=== PATIENT | female | born 1990 | race Two or more races ===

== ENCOUNTER 2017-03-10 13:11 | Emergency (ER) | payer OTHER ==
[2017-03-10 13:16] VITALS: BP 120/71; PULSE 67; TEMP 97.9; BMI 24.4
[2017-03-10] MEDS ORDERED: predniSONE 20 MG TABLET (UD) PO ONE (13:51)
[2017-03-10] MEDS ORDERED: ALBUTEROL SO4 2.5/IPRATROPIUM 0.5 INH SOL 3 ML VIAL.NEB. NEB ONE ×2 (13:51→13:55)
[2017-03-10] MEDS ORDERED: predniSONE 20 MG TABLET (UD) ONE (13:55)
[2017-03-10] MEDS ORDERED: diphenhydrAMINE HCL 25 MG CAPSULE (FP) PO ONE ×2 (13:56→14:01)
--- NOTE | 2017-03-10 13:58 | PDOC ---
History of Present Illness - General Chief Complaint: Cold Symptoms Stated Complaint: SOB/wheeze Time Seen by Provider: 03/10/17 13:40 History Source: Patient Exam Limitations: No Limitations - History of Present Illness Initial Comments: 03/10/17 13:55 26 yr female with asthma history presents with 3 days cough congestion and wheezing. no fever or chills. Pt denies history of intubations. no sick contacts. Associated Symptoms: reports: chest pain/soreness, cough. denies: denies symptoms Past History - Past Medical History Allergies/Adverse Reactions: Allergies Allergy/AdvReac Type Severity Reaction Status Date / Time No Known Allergies Allergy Verified 03/10/17 13:12 Home Medications: Ambulatory Orders Albuterol Sulfate Inhaler - [Ventolin Hfa Inhaler -] 2 inh PO Q4H 03/10/17 Fluticasone Prop 0.05% Nasal [Flonase -] 1 - 2 spray NS DAILY #1 spray.pump Ibuprofen [Motrin -] 800 mg PO TID 03/10/17 Prednisone [Deltasone -] 40 mg PO DAILY #6 tablet 03/10/17 Asthma: Yes (with preg) Diabetes: Yes (gestational) - Suicide/Smoking/Psychosocial Hx Smoking History: Never smoked Information on smoking cessation initiated: No Hx Alcohol Use: No Drug/Substance Use Hx: No Substance Use Type: None Review of Systems - Review of Systems Able to Perform ROS?: Yes Is the patient limited Lao proficient: No Constitutional: No: Symptoms Reported HEENTM: Yes: See HPI, Nose Congestion Respiratory: Yes: Cough *Physical Exam - Vital Signs Last Vital Signs Temp Pulse Resp BP Pulse Ox 97.9 F 67 18 120/71 100 03/10/17 13:13 03/10/17 13:13 03/10/17 13:13 03/10/17 13:13 03/10/17 13:13 - Physical Exam General Appearance: Yes: Nourished, Appropriately Dressed HEENT: positive: EOMI, PILY, Normal ENT Inspection, TMs Normal, Pharynx Normal, Nasal Congestion Neck: positive: Supple Respiratory/Chest: positive: Lungs Clear, Normal Breath Sounds Cardiovascular: positive: Regular Rhythm, Regular Rate Musculoskeletal: positive: Normal Inspection Extremity: positive: Normal Capillary Refill Integumentary: positive: Normal Color, Dry, Warm Medical Decision Making - Medical Decision Making 03/10/17 13:57 cc: cough wheezing, congestion no fever will give micki melton prednsione 03/10/17 14:57 pt feels better after the nebulizer will dc home with strict follow up with ENT *DC/Admit/Observation/Transfer Diagnosis at time of Disposition: Asthma Qualifiers: Asthma severity: moderate Asthma persistence: unspecified Asthma complication type: uncomplicated Qualified Code(s): J45.909 - Unspecified asthma, uncomplicated; J45.909 - Unspecified asthma, uncomplicated; J45.909 - Unspecified asthma, uncomplicated - Discharge Dispostion Disposition: HOME Condition at time of disposition: Good - Prescriptions Prescriptions: Prednisone [Deltasone -] 40 mg PO DAILY #6 tablet Fluticasone Prop 0.05% Nasal [Flonase -] 1 - 2 spray NS DAILY #1 spray.pump - Referrals Referrals: Ismael Lopez MD [Staff Physician] - - Patient Instructions Additional Instructions: drink at least 2 liters of water a day use your inhaler as directed next dose of prednisone tomorrow morning use the flonase nose spray as directed also take Zyrtec or Claritin or Barbara daily follow with the ENT doctor next week for follow up regarding your asthma and congestion
[2017-03-10] MEDS ORDERED: ONDANSETRON *ODT* 4 MG TABLET SL ONE (14:20)
[2017-03-10] MEDS ORDERED: ONDANSETRON *ODT* 4 MG TABLET ONE (14:22)
== END 2017-03-10 15:04 | disposition home or self-care (01) ==
LOC: JERFT 13:11
PROC: 3E0F7GC Introduction of Other Therapeutic Substance into Respiratory Tract, Via Natural or Artificial Opening (ICD-10-PCS; principal; 2017-03-10)
DX: J45.901 Unspecified asthma with (acute) exacerbation (principal); O24.439 Gestational diabetes mellitus in the puerperium, unspecified control
CPT/HCPCS: 99281-25

== ENCOUNTER 2017-03-11 11:44 | Emergency (ER) | payer OTHER ==
[2017-03-11 11:55] VITALS: TEMP 98.5; BMI 26.6
[2017-03-11] MEDS ORDERED: ALBUTEROL SO4 2.5/IPRATROPIUM 0.5 INH SOL 3 ML VIAL.NEB. NEB ONE ×2 (12:16→12:28)
[2017-03-11] MEDS: ALBUTEROL SO4 2.5/IPRATROPIUM 0.5 INH SOL 3 ML VIAL.NEB. NEB SCH ×4 (12:20→13:10)
--- NOTE | 2017-03-11 12:36 | PDOC ---
Attending Attestation - Resident Resident Name: ThabrittniVasu - ED Attending Attestation I have performed the following: I have examined & evaluated the patient, The case was reviewed & discussed with the resident, I agree w/resident's findings & plan, Exceptions are as noted - HPI HPI: 03/11/17 12:34 26 year old F c/ hx of asthma p/w asthma exacerbation. and cough. Pt was here yesterday. Given duonebs and prednisone and discharged. Today, c/o persistent SOB and wheezing. Has been using albuterol Denies fevers, chills but reports SOB. Came into ED for eval. - Physicial Exam PE: 03/11/17 12:34 GENERAL: mildly acute distress with tachypnea CV: RRR, +s1, s2 PULM: tachypneic to mid 20s, diffuse expiratory wheezing - Medical Decision Making 03/11/17 12:35 Vital Signs Temp Pulse Resp BP Pulse Ox 98.5 F 101 H 32 H 130/65 97 03/11/17 11:50 03/11/17 11:50 03/11/17 11:50 03/11/17 11:50 03/11/17 11:50 This is likely asthma exacerbation with plus/minus URI, bronchitis vs. PNA I agree with resident plan, labs, chest xray. nebs and steroids. Consider admission if not improving
[2017-03-11 12:37] LABS: BASOPHIL 0.7 % (0-2.0); EOSINOPHIL 2.4 % (0-4.5); MCH 30.2 pg (25.7-33.7); MCHC 32.4 g/dl (32.0-36.0); MEAN CELL VOLUME 93.1 fl (80-96); NEUTROPHILS 63.8 % (42.8-82.8); PLATELET COUNT 185 K/MM3 (134-434); RDW 14.2 % (11.6-15.6); WHITE BLOOD COUNT 7.5 K/mm3 (4.0-10.0)
[2017-03-11] MEDS ORDERED: predniSONE 20 MG TABLET (UD) PO ONE (12:38)
[2017-03-11] MEDS ORDERED: MAGNESIUM SULF 50% (8.12 MEQ/2 ML-1 GM VIAL) IVPB ONE (12:39)
[2017-03-11] MEDS ORDERED: predniSONE 20 MG TABLET (UD) ONE (12:41)
[2017-03-11] MEDS ORDERED: MAGNESIUM SULF 50% (8.12 MEQ/2 ML-1 GM VIAL) ONE (12:41)
--- NOTE | 2017-03-11 13:02 | PDOC ---
History of Present Illness - General Chief Complaint: Wheezing Stated Complaint: TROUBLE BREATHING Time Seen by Provider: 03/11/17 12:07 History Source: Patient Exam Limitations: No Limitations - History of Present Illness Initial Comments: 03/11/17 12:57 The patient is a 26 F with a PMH of asthma, s/p delivery 1 month ago who presents to the ED with worsening cough and SOB. The patient states that she was feeling very short of breath even before she delivered a baby. Her OB/ [facility] stated that she would feel better after delivering her baby and this did not happen. The patient states that her cough acutely worsened yesterday where she was seen at [facility] ED and was given prednisone and duoneb treatment and felt better. Today she states that her cough has worsened again and is complaining of CP and SOB but no fever/chills. All: Latex Past History - Past Medical History Allergies/Adverse Reactions: Allergies Allergy/AdvReac Type Severity Reaction Status Date / Time No Known Allergies Allergy Verified 03/11/17 11:55 Home Medications: Ambulatory Orders Albuterol Sulfate Inhaler - [Ventolin Hfa Inhaler -] 2 inh PO Q4H 03/10/17 Fluticasone Prop 0.05% Nasal [Flonase -] 1 - 2 spray NS DAILY #1 spray.pump Ibuprofen [Motrin -] 800 mg PO TID 03/10/17 Prednisone [Deltasone -] 40 mg PO DAILY #6 tablet 03/10/17 Albuterol Sulfate Inhaler - [Ventolin Hfa Inhaler -] 1 - 2 inh PO Q4H #1 inhaler 03/11/17 Azithromycin [Zithromax 250mg Tablets -] 250 mg PO UTDICT #6 tab 03/11/17 Benzonatate [Tessalon Pearls -] 100 mg PO TID #21 capsule 03/11/17 Asthma: Yes (with preg) Diabetes: Yes (gestational) - Suicide/Smoking/Psychosocial Hx Smoking History: Never smoked Have you smoked in the past 12 months: No Information on smoking cessation initiated: No Hx Alcohol Use: No Drug/Substance Use Hx: No Substance Use Type: None Review of Systems - Review of Systems Able to Perform ROS?: Yes Is the patient limited Lithuanian proficient: No Constitutional: No: Chills, Fever HEENTM: Yes: Throat Pain. No: Eye Pain, Ear Pain Respiratory: Yes: Cough, Shortness of Breath Cardiac (ROS): Yes: Chest Pain, Palpitations ABD/GI: No: Constipated, Diarrhea, Nausea, Vomiting : No: Burning, Dysuria, Discharge Integumentary: No: Lesions, Lumps, Rash Neurological: No: Headache, Numbness, Tingling, Weakness *Physical Exam - Vital Signs Last Vital Signs Temp Pulse Resp BP Pulse Ox 98.5 F 101 H 32 H 130/65 97 03/11/17 11:50 03/11/17 11:50 03/11/17 11:50 03/11/17 11:50 03/11/17 11:50 - Physical Exam General Appearance: Yes: Nourished, Appropriately Dressed, Moderate Distress. No: Apparent Distress HEENT: positive: Normal Voice, Hearing Grossly Normal Respiratory/Chest: positive: Labored Respiration, Wheezing (R sided inspiratory and expiratory wheezes). negative: Chest Tender, Lungs Clear, Normal Breath Sounds, Paradoxal Breathing, Crackles, Rales, Rhonchi, Stridor Cardiovascular: positive: Regular Rhythm, Regular Rate, S1, S2. negative: Diastolic Murmur, Systolic Murmur Gastrointestinal/Abdominal: positive: Flat, Soft. negative: Tender Extremity: positive: Normal Range of Motion. negative: Coldness, Swelling, Calf Tenderness Integumentary: positive: Dry, Warm. negative: Clammy, Diaphoresis Neurologic: positive: Fully Oriented, Alert, Normal Mood/Affect, Motor Strength 5/5 ED Treatment Course - LABORATORY CBC & Chemistry Diagram: 03/11/17 12:19 03/11/17 12:19 - ADDITIONAL ORDERS Additional order review: 03/11/17 12:19 RBC 4.95 MCV 93.1 MCHC 32.4 RDW 14.2 MPV 8.0 Neutrophils % 63.8 Lymphocytes % 27.3 Monocytes % 5.8 Eosinophils % 2.4 Basophils % 0.7 - RADIOLOGY Radiology Studies Ordered: Category Date Time Status CHEST PA & LAT [RAD] Stat Radiology 03/11/17 12:19 Ordered - Medications Given in the ED: ED Medications Discontinued Medications Generic Name Dose Route Start Last Admin Trade Name Freq PRN Reason Stop Dose Admin Albuterol/Ipratropium 1 amp 03/11/17 12:16 03/11/17 12:38 Duoneb - NEB 03/11/17 12:17 Not Given ONCE ONE Magnesium Sulfate 2 gm 03/11/17 12:39 03/11/17 12:50 Magnesium Sulfate IVPB 03/11/17 12:40 2 gm ONCE ONE Administration Prednisone 60 mg 03/11/17 12:38 03/11/17 12:50 Deltasone - PO 03/11/17 12:39 60 mg ONCE ONE Administration Medical Decision Making - Medical Decision Making 03/11/17 13:04 The patient is a 26F with a PMH of asthma and post- x 1 month who presents with an acutely worsening cough. I have concern for asthma exacerbation and PE. Will order labs and reassess periodically for improvement of breath sounds. 2 duonebs and patient still has expiratory wheezes. Steroids and mag ordered. Will reassess. No WBC count. Pending chem panel. 03/11/17 13:16 Wheezing has improved but patient states that she is not feeling too much better. Will discuss with attending. 03/11/17 14:49 Patient was sleeping comfortably in bed. Wheezing is no longer present. Will d/ c with antibiotics and albuterol inhaler. *DC/Admit/Observation/Transfer Diagnosis at time of Disposition: Asthma Qualifiers: Asthma severity: moderate Asthma persistence: unspecified Asthma complication type: with acute exacerbation Qualified Code(s): J45.901 - Unspecified asthma with (acute) exacerbation - Discharge Dispostion Disposition: HOME Condition at time of disposition: Stable Admit: No - Prescriptions Prescriptions: Benzonatate [Tessalon Pearls -] 100 mg PO TID #21 capsule Albuterol Sulfate Inhaler - [Ventolin Hfa Inhaler -] 1 - 2 inh PO Q4H #1 inhaler Azithromycin [Zithromax 250mg Tablets -] 250 mg PO UTDICT #6 tab - Referrals Referrals: STAFF,NOT ON [Primary Care Provider] - Angi Bermudez MD [Staff Physician] - - Patient Instructions Printed Discharge Instructions: Acute Bronchitis, Asthma -- Adult, DI for Viral Upper Respiratory Infection -- Adult Additional Instructions: Please return to the ER if symptoms persist, worsen, or if new symptoms arise. Please follow up with [facility] (Dr. Combs) within 2-3 days. Please return if you have any shortness of breath, nausea, vomiting, fever, or chills. Please take your prescriptions as prescribed including the prednisone you were prescribed yesterday.
[2017-03-11 13:07] LABS: ALBUMIN 3.7 g/dl (3.4-5.0); ALK PHOS 131 U/L (45-117); ANION GAP 11 (8-16); BILIRUBIN,TOTAL 0.3 mg/dL (0.2-1.0); CALCIUM 8.8 mg/dL (8.5-10.1); CO2 25 mmol/L (21-32); CREATININE 0.8 mg/dL (0.55-1.02); GLUCOSE,RANDOM 99 mg/dL (74-106); SGPT/ALT 33 U/L (12-78); TOT PROT 7.1 g/dl (6.4-8.2)
[2017-03-11 13:14] LABS: SGOT/AST 24 U/L (15-37)
[2017-03-11 15:29] VITALS: BP 104/63; PULSE 90
== END 2017-03-11 15:20 | disposition home or self-care (01) ==
LOC: JER 11:44
PROC: 3E0F7GC Introduction of Other Therapeutic Substance into Respiratory Tract, Via Natural or Artificial Opening (ICD-10-PCS; principal; 2017-03-11)
PROC: 3E033GC Introduction of Other Therapeutic Substance into Peripheral Vein, Percutaneous Approach (ICD-10-PCS; 2017-03-11)
DX: O99.53 Diseases of the respiratory system complicating the puerperium (principal); J45.901 Unspecified asthma with (acute) exacerbation
CPT/HCPCS: 36415; 71020-TC; 80053; 84703; 85025; 94640; 96374; 99283-25

== ENCOUNTER 2017-03-25 10:31 | Emergency (ER) | payer OTHER ==
[2017-03-25 10:53] VITALS: BP 100/47; TEMP 98.3; BMI 23.9
[2017-03-25] MEDS: ALBUTEROL SO4 2.5/IPRATROPIUM 0.5 INH SOL 3 ML VIAL.NEB. NEB SCH ×4 (11:00→11:54)
--- NOTE | 2017-03-25 11:00 | PDOC ---
History of Present Illness - General Chief Complaint: Shortness of Breath Stated Complaint: CHEST PAIN, ASTHMA Time Seen by Provider: 03/25/17 10:58 History Source: Patient Exam Limitations: No Limitations - History of Present Illness Initial Comments: 03/25/17 11:18 My Chief Complaint: cough productive, wheezing History of Present Illness: Pt. is a 26-year-old female with a history of asthma and gestational diabetes here today due to worsening chest tightness, wheezing, with difficulty breathing since yesterday. Patient reports that today breathing was even more difficult. Patient reports having chest tightness with pain upon inspiration. Patient reports that cough is productive with white to clear phlegm. Patient also reports having nasal congestion with postnasal drip. She has been using Flonase nasal spray. Patient reports that she used her albuterol pump multiple times today without relief of symptoms. Pt.denies any nausea, vomiting, sore throat, fever or chills. Pt. reports that she was here on 03/10/17 and 03/11/17 first similar symptoms and was treated with azithromycin and prednisone. Patient denies any recent travel or any sick contacts. Pt. is on OCP's. Pt. has her menses since yesterday. SHe denies ever being hospitalized due to asthma. 03/25/17 11:47 03/25/17 11:50 03/25/17 11:54 03/25/17 11:55 03/25/17 12:31 Severity: moderate Associated Symptoms: reports: chest pain (with coughing, deep breaths ), cough ( clear to white ), shortness of breath (and chest discomofrt with tightness of chest ), other (lungs upon reassessment CTA b/l ). denies: fever/chills Past History - Past Medical History Allergies/Adverse Reactions: Allergies Allergy/AdvReac Type Severity Reaction Status Date / Time No Known Allergies Allergy Verified 03/25/17 10:34 Home Medications: Ambulatory Orders Albuterol Sulfate Inhaler - [Ventolin HFA Inhaler -] 2 inh PO Q4H PRN #1 inh Cetirizine HCl [Zyrtec -] 10 mg PO DAILY #10 tablet 03/25/17 Fluticasone Propionate [Flovent Diskus] 100 mcg IH DAILY #1 disk.w.dev 03/25/17 Prednisone [Deltasone -] 20 mg PO BID #8 tablet 03/25/17 Asthma: Yes (with preg) Diabetes: Yes (gestational) - Suicide/Smoking/Psychosocial Hx Smoking History: Never smoked Have you smoked in the past 12 months: No Information on smoking cessation initiated: No Hx Alcohol Use: No Drug/Substance Use Hx: No Substance Use Type: None Review of Systems - Review of Systems Able to Perform ROS?: Yes Constitutional: No: Symptoms Reported HEENTM: Yes: Nose Congestion, Other (post nasal drip) Respiratory: Yes: Shortness of Breath, Wheezing, Productive cough (clear/ whitish ) Cardiac (ROS): Yes: Chest Pain (with tightness and worse with cough ), Lightheadedness ABD/GI: No: Symptoms Reported : No: Symptoms Reported Musculoskeletal: No: Symptoms Reported Integumentary: No: Symptoms Reported Neurological: No: Symptoms reported *Physical Exam - Vital Signs Last Vital Signs Temp Pulse Resp BP Pulse Ox 98.3 F 96 H 28 H 100/47 97 03/25/17 10:34 03/25/17 10:34 03/25/17 10:34 03/25/17 10:34 03/25/17 10:34 - Physical Exam General Appearance: Yes: Appropriately Dressed HEENT: positive: Normal ENT Inspection Neck: negative: Lymphadenopathy (R), Lymphadenopathy (L) Respiratory/Chest: positive: Crackles (left lung base few ), Rhonchi (b/l clears slightly with cough), Wheezing (b/l slight after 2 duonebs given in triage), Other (reassessment CTA b/l at 1:14 pm ). negative: Decreased Breath Sounds, Rales Cardiovascular: positive: Regular Rhythm, Regular Rate, S1, S2 Integumentary: positive: Normal Color Neurologic: positive: Alert, Normal Response Heart Score/ECG Review - ECG Intrepretation Rhythm: Regular Rhythm (reviewed by MD) Medical Decision Making - Medical Decision Making 03/25/17 12:31 03/25/17 12:31 Pt. is a 26-year-old female with a history of asthma and gestational diabetes here today due to worsening chest tightness, wheezing, with difficulty breathing since yesterday. Patient reports that today breathing was even more difficult. Patient reports having chest tightness with pain upon inspiration. Patient reports that cough is productive with white to clear phlegm. Patient also reports having nasal congestion with postnasal drip. She has been using Flonase nasal spray. Patient reports that she used her albuterol pump multiple times today without relief of symptoms. Pt.denies any nausea, vomiting, sore throat, fever or chills. Pt. reports that she was here on 03/10/17 and 03/11/17 first similar symptoms and was treated with azithromycin and prednisone. Patient denies any recent travel or any sick contacts. Pt. is on OCP's. Pt. has her menses since yesterday. SHe denies ever being hospitalized due to asthma. asthma Exacerabation r/o infiltrate PLAN: duoneb X 3 prednisone 60 mg po now than 20 mg bid for following 4 days urine HCG negative Xray chest PA/lateral no infiltrate per Dr. Jackson 03/25/17 13:15 Albuterol HFA 2 puffs every 4 hours as needed for wheezing or chest tightness or severe cough flovent 03/25/17 13:19 03/25/17 13:22 *DC/Admit/Observation/Transfer Diagnosis at time of Disposition: Asthma with acute exacerbation in adult Qualifiers: Asthma severity: unspecified severity Asthma persistence: unspecified Qualified Code(s): J45.901 - Unspecified asthma with (acute) exacerbation; J45.901 - Unspecified asthma with (acute) exacerbation; J45.901 - Unspecified asthma with (acute) exacerbation - Discharge Dispostion Disposition: HOME Condition at time of disposition: Stable - Referrals Referrals: Jorge Mendez MD [Staff Physician] - - Patient Instructions Additional Instructions: Follow-up with your primary care provider within the next 2 days FOR FURTHER EVALUATION follow up with administrative aide as soon as possible for further evaluation Return to emergency room if symptoms worsen any difficulty breathing or any worsening shortness of breath or severe wheezing or any other symptoms develop DRINK a lot a fluids and rest Patient voiced understanding of discharge instructions and all questions were answered Thank you for coming to [facility] emergency room for your medical needs today
[2017-03-25] MEDS ORDERED: predniSONE 20 MG TABLET (UD) PO ONE (11:12)
[2017-03-25] MEDS ORDERED: ALBUTEROL SO4 2.5/IPRATROPIUM 0.5 INH SOL 3 ML VIAL.NEB. NEB ONE (11:16)
[2017-03-25] MEDS ORDERED: predniSONE 20 MG TABLET (UD) ONE (11:16)
[2017-03-25 12:55] VITALS: PULSE 80
--- NOTE | 2017-03-26 09:09 | EKG ---
Test Reason : Blood Pressure : / mmHG Vent. Rate : 087 BPM Atrial Rate : 087 BPM P-R Int : 128 ms QRS Dur : 080 ms QT Int : 364 ms P-R-T Axes : 070 057 054 degrees QTc Int : 438 ms NORMAL SINUS RHYTHM NORMAL ECG NO PREVIOUS ECGS AVAILABLE Confirmed by IQRA SANTOS, RUBEN ([id number]) on 03/26/2017 9:09:03 AM Referred By: Confirmed By:RUBEN ESCALONA MD
== END 2017-03-25 13:35 | disposition home or self-care (01) ==
LOC: JER 10:31 → JERFT 10:31
PROC: 3E0F7GC Introduction of Other Therapeutic Substance into Respiratory Tract, Via Natural or Artificial Opening (ICD-10-PCS; principal; 2017-03-25)
DX: J45.901 Unspecified asthma with (acute) exacerbation (principal); Z86.32 Personal history of gestational diabetes
CPT/HCPCS: 71020-TC; 84703; 93005; 93010; 99281-25

== ENCOUNTER 2017-06-05 23:51 | Emergency (ER) | payer OTHER ==
[2017-06-06 00:56] VITALS: BP 121/72; PULSE 67; TEMP 98.5; BMI 26.2
[2017-06-06] MEDS ORDERED: predniSONE 20 MG TABLET (UD) PO ONE (00:59)
[2017-06-06] MEDS ORDERED: SULFAMETHOXAZOLE/TRIMETHOPRIM 800MG/160MG D.S. TABLET PO ONE (01:00)
--- NOTE | 2017-06-06 01:02 | PDOC ---
History of Present Illness - General Chief Complaint: Asthma Stated Complaint: ASTHMA History Source: Patient Exam Limitations: No Limitations - History of Present Illness Initial Comments: 06/06/17 01:16 27-year-old female with a history of asthma presents to the emergency department complaining of folliculitis to the left axillary region and shortness of breath that started at approximately 1800 hrs. this evening. Patient states she took her Ventolin inhaler with moderate relief at ~2130hrs and denies nausea/vomiting, fever/chills, headache, dizziness, lightheadedness, facial pain, rhinorrhea, nasal congestion, earaches, sore throat, neck pain/ stiffness, back pain, chest pain, abdominal pains, flank pains, urinary symptoms. She denies history of intubation or admission due to asthma. Timing/Duration: reports: this evening Past History - Past Medical History Allergies/Adverse Reactions: Allergies Allergy/AdvReac Type Severity Reaction Status Date / Time No Known Allergies Allergy Verified 06/06/17 00:47 Home Medications: Ambulatory Orders Prednisone [Deltasone -] 40 mg PO BID #6 tablet 06/06/17 Sulfamethoxazole/Trimethoprim [Bactrim Ds -] 1 tab PO BID #14 tablet 06/06/17 Asthma: Yes (with preg) Diabetes: Yes (gestational) - Suicide/Smoking/Psychosocial Hx Smoking History: Never smoked Have you smoked in the past 12 months: No Information on smoking cessation initiated: No Hx Alcohol Use: No Drug/Substance Use Hx: No Substance Use Type: None Review of Systems - Review of Systems Able to Perform ROS?: Yes Comments:: 06/06/17 01:17 CONSTITUTIONAL: Absent: fever, chills, diaphoresis, generalized weakness, malaise, loss of appetite HEENT: Absent: rhinorrhea, nasal congestion, throat pain, throat swelling, difficulty swallowing, mouth swelling, ear pain, eye pain, visual Changes CARDIOVASCULAR: Absent: chest pain, loss of consciousness, palpitations, irregular heart rate, peripheral edema RESPIRATORY: +sob Absent: cough, shortness of breath, dyspnea with exertion, orthopnea, wheezing, stridor, hemoptysis GASTROINTESTINAL: Absent: abdominal pain, abdominal distension, nausea, vomiting, diarrhea, constipation, melena, hematochezia GENITOURINARY: Absent: dysuria, frequency, urgency, hesitancy, hematuria, flank pain, genital pain MUSCULOSKELETAL: Absent: myalgia, arthralgia, joint swelling SKIN: Left axillar "bumps" Absent: rash, itching, pallor Is the patient limited Korean proficient: No *Physical Exam - Vital Signs Last Vital Signs Temp Pulse Resp BP Pulse Ox 98.5 F 67 14 121/72 99 06/06/17 00:47 06/06/17 00:47 06/06/17 00:47 06/06/17 00:47 06/06/17 00:47 - Physical Exam Comments: 06/06/17 01:18 GENERAL: Well developed, well nourished. Awake and alert. No acute distress. HEENT: Normocephalic, atraumatic. PERRLA, EOMI. No conjunctival pallor. Sclera are non- icteric. Moist mucous membranes. Oropharynx is clear. NECK: Supple. Full ROM. No JVD. Carotid pulses 2+ and symmetric, without bruits. No thyromegaly. No lymphadenopathy. CARDIOVASCULAR: Regular rate and rhythm. No murmurs, rubs, or gallops. Distal pulses are 2+ and symmetric. PULMONARY: No evidence of respiratory distress. Lungs clear to auscultation bilaterally. No wheezing, rales or rhonchi. ABDOMINAL: Soft. Non-tender. Non-distended. No rebound or guarding. No organomegaly. Normoactive bowel sounds. MUSCULOSKELETAL Normal range of motion at all joints. No bony deformities or tenderness. No CVA tenderness. EXTREMITIES: No cyanosis. No clubbing. No edema. No calf tenderness. SKIN: + Multiple erythematous early pustules to the left axilla without drainage or lymphangitis Warm and dry. Normal capillary refill. No rashes. No jaundice. Progress Note - Progress Note Progress Note: 0200hrs: Signed out to DARIELA Perez for reeval *DC/Admit/Observation/Transfer Diagnosis at time of Disposition: Folliculitis Asthma Qualifiers: Asthma severity: mild Asthma persistence: intermittent Asthma complication type : uncomplicated Qualified Code(s): J45.20 - Mild intermittent asthma, uncomplicated - Discharge Dispostion Condition at time of disposition: Stable Admit: No - Prescriptions Prescriptions: Prednisone [Deltasone -] 40 mg PO BID #6 tablet Sulfamethoxazole/Trimethoprim [Bactrim Ds -] 1 tab PO BID #14 tablet - Referrals - Patient Instructions Printed Discharge Instructions: Asthma -- Adult, DI for Folliculitis Additional Instructions: Follow-up with your physician within 48 hours for your asthma Take the antibiotics/Bactrim DS 1 tablet twice a day for 7 days for you left armpit. Redness/pain Warm compress to the left armpit Return back to the emergency department for severe/persistent or worsening symptoms - Post Discharge Activity
[2017-06-06] MEDS ORDERED: SULFAMETHOXAZOLE/TRIMETHOPRIM 800MG/160MG D.S. TABLET ONE (01:03)
[2017-06-06] MEDS ORDERED: predniSONE 20 MG TABLET (UD) ONE (01:03)
== END 2017-06-06 02:30 | disposition home or self-care (01) ==
LOC: JER 23:51
DX: J45.20 Mild intermittent asthma, uncomplicated (principal); L73.8 Other specified follicular disorders
CPT/HCPCS: 99281-25

== ENCOUNTER 2017-06-22 18:22 | Inpatient (IN) | payer OTHER ==
[2017-06-22] MEDS ORDERED: ALBUTEROL SO4 2.5/IPRATROPIUM 0.5 INH SOL 3 ML VIAL.NEB. NEB ONE ×5 (18:25→19:54)
[2017-06-22 18:33] VITALS: BMI 26.2
--- NOTE | 2017-06-22 18:35 | PDOC ---
Rapid Medical Evaluation Medical Evaluation: Allergies Allergy/AdvReac Type Severity Reaction Status Date / Time No Known Allergies Allergy Verified 06/06/17 00:47 06/22/17 18:28 The patient presents with a chief complaint of: Shortness of breath, hx of asthma. Has been hospitalized in the past. Never intubated. I have performed a brief in-person evaluation of this patient; Pertinent physical exam findings: Poor aeration to the bases. No expiratory sounds, I have ordered the following: CBC, CMP, PT/INR, influenza, duonebx2, solumedrol The patient will proceed to the ED for further evaluation.
[2017-06-22] MEDS ORDERED: methylPREDNISolone NA SUCC 125 MG/2 ML VIAL IVPUSH ONE (18:36)
[2017-06-22] MEDS ORDERED: methylPREDNISolone NA SUCC 125 MG/2 ML VIAL ONE (18:41)
[2017-06-22] MEDS ORDERED: SODIUM CHLORIDE 0.9% 1000 ML INFUS.BAG IV ONE (19:35)
[2017-06-22 19:54] LABS: BASO % 0.5 % (0-2.0); EOS % 4.6 % (0-4.5); HEMATOCRIT 44.5 % (32.4-45.2); HEMOGLOBIN 14.8 GM/dL (10.7-15.3); LYMPH % 16.8 % (8-40); MCH 31.9 pg (25.7-33.7); MCHC 33.3 g/dl (32.0-36.0); MEAN CELL VOLUME 95.6 fl (80-96); MEAN PLT VOLUME 8.6 fl (7.5-11.1); MONO % 5.9 % (3.8-10.2); NEUT % 72.2 % (42.8-82.8); PLATELET COUNT 197 K/MM3 (134-434); RBC 4.66 M/mm3 (3.60-5.2); RDW 13.1 % (11.6-15.6); WHITE BLOOD COUNT 7.6 K/mm3 (4.0-10.0)
[2017-06-22] MEDS ORDERED: MAGNESIUM SULF 50% (8.12 MEQ/2 ML-1 GM VIAL) IVPB ONE (20:09)
--- NOTE | 2017-06-22 20:09 | PDOC ---
History of Present Illness - General History Source: Patient Exam Limitations: No Limitations - History of Present Illness Initial Comments: 06/22/17 20:38 The patient is a 27 year old female, with a significant past medical history of asthma (no past admissions, never intubated), who presents to the emergency department with asthma exacerbation for approx. one day. The patient reports associated measured fever of 101F and productive cough with cream colored sputum. The patient reports she used an albuterol inhaler at home with minimal relief. She denies recent fever, chills, headache or dizziness. She denies recent nausea, vomit, diarrhea or constipation. She denies recent chest pain or palpitations. Allergies: NKA <Lawrence Glasgow - Last Filed: 06/22/17 20:56> <Kaitlin Vargas - Last Filed: 06/23/17 00:28> - General Chief Complaint: Asthma Stated Complaint: ASTHMA Time Seen by Provider: 06/22/17 19:20 Past History <Lawrence Glasgow - Last Filed: 06/22/17 20:56> - Past Medical History Asthma: Yes (with preg) CVA: No COPD: No Diabetes: Yes (gestational) - Immunization History Immunization Up to Date: Yes - Suicide/Smoking/Psychosocial Hx Smoking History: Never smoked Have you smoked in the past 12 months: No Information on smoking cessation initiated: No Hx Alcohol Use: No Drug/Substance Use Hx: No Substance Use Type: None <Kaitlin Vargas - Last Filed: 06/23/17 00:28> - Past Medical History Allergies/Adverse Reactions: Allergies Allergy/AdvReac Type Severity Reaction Status Date / Time No Known Allergies Allergy Verified 06/22/17 18:28 Home Medications: Ambulatory Orders Albuterol Sulfate Inhaler - [Ventolin HFA Inhaler -] PRN 06/22/17 Review of Systems - Review of Systems Comments:: 06/22/17 20:38 GENERAL/CONSTITUTIONAL: +Asthma exacerbation. No fever or chills. No weakness. HEAD, EYES, EARS, NOSE AND THROAT: No change in vision. No ear pain or discharge. No sore throat. CARDIOVASCULAR: +Shortness of breath. No chest pain RESPIRATORY: +Productive cough. +Wheezing. GASTROINTESTINAL: No nausea, vomiting, diarrhea or constipation. GENITOURINARY: No dysuria, frequency, or change in urination. MUSCULOSKELETAL: No joint or muscle swelling or pain. No neck or back pain. SKIN: No rash NEUROLOGIC: No headache, vertigo, loss of consciousness, or change in strength/ sensation. ENDOCRINE: No increased thirst. No abnormal weight change. HEMATOLOGIC/LYMPHATIC: No anemia, easy bleeding, or history of blood clots. ALLERGIC/IMMUNOLOGIC: No hives or skin allergy. <Lawrence Glasgow - Last Filed: 06/22/17 20:56> *Physical Exam - Vital Signs Last Vital Signs Temp Pulse Resp BP Pulse Ox 98.9 F 127 H 26 H 155/65 95 06/22/17 18:29 06/22/17 18:29 06/22/17 18:29 06/22/17 18:29 06/22/17 18:29 - Physical Exam Comments: 06/22/17 20:56 GENERAL: +Moderate respiratory distress. +Conversational dyspnea. Awake, alert , and fully oriented. HEAD: No signs of trauma EYES: PERRLA, EOMI, sclera anicteric, conjunctiva clear ENT: Auricles normal inspection, hearing grossly normal, nares patent, oropharynx clear without exudates. Moist mucosa NECK: Normal ROM, supple, no lymphadenopathy, JVD, or masses LUNGS: +Diffuse wheezing bilaterally. HEART +Tachycardia. Normal S1 and S2, no murmurs, rubs or gallops ABDOMEN: Soft, nontender, normoactive bowel sounds. No guarding, no rebound. No masses EXTREMITIES: Normal range of motion, no edema. No clubbing or cyanosis. No cords, erythema, or tenderness NEUROLOGICAL: Cranial nerves II through XII grossly intact. Normal speech, normal gait SKIN: Warm, Dry, normal turgor, no rashes or lesions noted. <Lawrence Glasgow - Last Filed: 06/22/17 20:56> - Vital Signs Last Vital Signs Temp Pulse Resp BP Pulse Ox 98.9 F 127 H 26 H 155/65 95 06/22/17 18:29 06/22/17 18:29 06/22/17 18:29 06/22/17 18:29 06/22/17 18:29 <Kaitlin Vargas - Last Filed: 06/23/17 00:28> Heart Score/ECG Review - ECG Intrepretation Comment:: 06/22/17 23:55 sinus tach at 115, nl axis, nl interval, no acute st/t wave findings <Kaitlin Vargas - Last Filed: 06/23/17 00:28> ED Treatment Course - LABORATORY CBC & Chemistry Diagram: 06/22/17 19:00 06/22/17 19:00 - ADDITIONAL ORDERS Additional order review: 06/22/17 18:40 Influenza Types A,B Antigen (JUAN) - Preliminary Nasopharyngeal Swab - Preliminary 06/22/17 19:00 RBC 4.66 MCV 95.6 MCHC 33.3 RDW 13.1 MPV 8.6 Neutrophils % 72.2 Lymphocytes % 16.8 D Monocytes % 5.9 Eosinophils % 4.6 H D Basophils % 0.5 - Medications Given in the ED: ED Medications Discontinued Medications Generic Name Dose Route Start Last Admin Trade Name Freq PRN Reason Stop Dose Admin Albuterol/Ipratropium 1 amp 06/22/17 18:25 06/22/17 18:25 Duoneb - NEB 06/22/17 18:26 1 amp ONCE ONE Administration Albuterol/Ipratropium 1 amp 06/22/17 18:45 06/22/17 18:52 Duoneb - NEB 06/22/17 18:46 1 amp ONCE ONE Administration Albuterol/Ipratropium 1 amp 06/22/17 19:35 06/22/17 20:06 Duoneb - NEB 06/22/17 19:36 1 amp ONCE ONE Administration Methylprednisolone Sodium Succinate 125 mg 06/22/17 18:36 06/22/17 18:42 Solu-Medrol - IVPUSH 06/22/17 18:37 125 mg ONCE ONE Administration Sodium Chloride 1,000 ml 06/22/17 19:35 06/22/17 20:06 Normal Saline - IV 06/22/17 19:36 1,000 ml ONCE ONE Administration <Lawrence Glasgow - Last Filed: 06/22/17 20:56> - LABORATORY CBC & Chemistry Diagram: 06/22/17 19:00 06/22/17 19:00 - ADDITIONAL ORDERS Additional order review: 06/22/17 19:00 RBC 4.66 MCV 95.6 MCHC 33.3 RDW 13.1 MPV 8.6 Neutrophils % 72.2 Lymphocytes % 16.8 D Monocytes % 5.9 Eosinophils % 4.6 H D Basophils % 0.5 - Medications Given in the ED: ED Medications Discontinued Medications Generic Name Dose Route Start Last Admin Trade Name Brandee PRN Reason Stop Dose Admin Albuterol/Ipratropium 1 amp 06/22/17 18:25 06/22/17 18:25 Duoneb - NEB 06/22/17 18:26 1 amp ONCE ONE Administration Albuterol/Ipratropium 1 amp 06/22/17 18:45 06/22/17 18:52 Duoneb - NEB 06/22/17 18:46 1 amp ONCE ONE Administration Albuterol/Ipratropium 1 amp 06/22/17 19:35 06/22/17 20:06 Duoneb - NEB 06/22/17 19:36 1 amp ONCE ONE Administration Methylprednisolone Sodium Succinate 125 mg 06/22/17 18:36 06/22/17 18:42 Solu-Medrol - IVPUSH 06/22/17 18:37 125 mg ONCE ONE Administration Sodium Chloride 1,000 ml 06/22/17 19:35 06/22/17 20:06 Normal Saline - IV 06/22/17 19:36 1,000 ml ONCE ONE Administration <Kaitlin Vargas - Last Filed: 06/23/17 00:28> Medical Decision Making - Critical Care Time Total Critical Care Time (minutes): 30 Critical Care Statement: The care of this patient involved high complexity decision making to prevent further life threatening deterioration of the patient 's condition and/or to evaluate & treat vital organ system(s) failure or risk of failure. - Medical Decision Making 06/22/17 20:08 a/p: 27yo female with wheezing/sob/cough/fever -hx of asthma -now with asthma exacerbation -poss secondary to URI vs PNA vs Flu -will send labs, cxr, flu swab will give nebs, steroids, ivf hydraton -will add magnesium 06/22/17 21:35 pt with wheezing and conversational dyspnea receiving iv mag currently will continue with albuterol 06/22/17 22:42 still wheezing and chest tightness, will dose albuterol and keep in obs 06/22/17 22:48 06/23/17 00:28 case discussed with the IM resident who accepts pt to service <Kaitlin Vargas - Last Filed: 06/23/17 00:28> *DC/Admit/Observation/Transfer - Attestations Scribe Attestion: 06/22/17 20:39 Documentation prepared by Lawrence Glasgow, acting as medical technologist blood bank for Kaitlin Vargas DO. <Lawrence Glasgow - Last Filed: 06/22/17 20:56> - Attestations Physician Attestion: 06/22/17 22:48 I, Dr. Kaitlin Vargas DO, attest that this document has been prepared under my direction and personally reviewed by me in its entirety. I further attest, that it accurately reflects all work, treatment, procedures and medical decision -making performed by me. <Kaitlin Vargas - Last Filed: 06/23/17 00:28> Diagnosis at time of Disposition: Asthma with acute exacerbation in adult - Discharge Dispostion Condition at time of disposition: Fair
[2017-06-22 20:28] LABS: INR 0.95 (0.82-1.09); PROTHROMBIN TIME (PATIENT) 10.7 SEC (9.98-11.88)
[2017-06-22 20:42] LABS: ALBUMIN 3.7 g/dl (3.4-5.0); ANION GAP 10 (8-16); BLOOD UREA NITROGEN 7 mg/dL (7-18); CHLORIDE 106 mmol/L (98-107); CO2 24 mmol/L (21-32); CREATININE 0.8 mg/dL (0.55-1.02); GLUCOSE,RANDOM 118 mg/dL (74-106); POTASSIUM 3.2 mmol/L (3.5-5.1); SGOT/AST 13 U/L (15-37); SGPT/ALT 21 U/L (12-78); SODIUM 140 mmol/L (136-145)
[2017-06-22 20:44] LABS: ALK PHOS 101 U/L (45-117); BILIRUBIN,TOTAL 0.5 mg/dL (0.2-1.0); TOT PROT 7.1 g/dl (6.4-8.2)
[2017-06-22] MEDS ORDERED: MAGNESIUM SULF 50% (8.12 MEQ/2 ML-1 GM VIAL) ONE (21:18)
[2017-06-22] MEDS ORDERED: ALBUTEROL SO4 0.083% IH SOL 2.5 MG/3 ML VIAL.NEB. NEB ONE ×4 (21:35→23:35)
[2017-06-22] MEDS ORDERED: AZITHROMYCIN IVPB 500 MG in DEXTROSE 5%-WATER - 250 ML IVPB ONE (23:52)
[2017-06-23] MEDS ORDERED: ALBUTEROL SO4 2.5/IPRATROPIUM 0.5 INH SOL 3 ML VIAL.NEB. NEB ONE (00:14)
--- NOTE | 2017-06-23 01:04 | PN ---
Teaching Attending Note Name of Resident: Carissa Dunham ATTENDING PHYSICIAN STATEMENT I saw and evaluated the patient. I reviewed the resident's note and discussed the case with the resident. I agree with the resident's findings and plan as documented. SUBJECTIVE:Patient admitted for wheezing and sob, with h/o asthma, no relief with inhaler or multiple treatments in the ED OBJECTIVE: Gen: febrile 103, acute distress HEENT: NC, PERRLA, MMM Lungs: b/l slight expiratory wheeze, tachypneic CVS: tachycardic, S1, S2 Abd: Soft, NT, ND, BS+ Ext: Nl ROM, no edema CBC, BMP 06/22/17 19:00 06/22/17 19:00 ASSESSMENT AND PLAN:Patient initially admitted to observation for Asthma exacerbation- Prednisone 40mg daily Duoneb q6h and Peak flow daily. Consider pulmonary consult if no improvement. On further evaluation this mornig patient found afebrile and tachypneic, diagnosed with sepsis most likely secondary to CAP, Azithromycin and Ceftriaxone started, IVF NS 150cc/h, nebs increased to q4h. Follow ABG.
--- NOTE | 2017-06-23 01:15 | HP ---
CHIEF COMPLAINT: asthma exacerbation PCP: works at [employer], does not know name HISTORY OF PRESENT ILLNESS: 27 y/o F with PMH asthma (dx 4 months ago, during her . Never intubated; admitted here for last exacerbation 2 weeks ago. Was on prednisone, which alleviated sx), who presents to the ED with asthma exacerbation over the past day. As per patient, this AM, she woke up with a productive cough (cream colored, without blood), and chest tightness, which progressively worsened. She felt as if her airway was closing up, and subsequently developed a fever at 4pm (Tmax 100.1F). Fever was not alleviated with Tylenol. For this reason, pt decided to come to the hospital. Pt also endorses 2-3 episodes of NBNB emesis over the last day. During exam, pt is nauseated, endorses VIVEROS. Otherwise denies chills, abdominal pain, or lower extremity pain. Recently, pt feels as if her asthma is poorly controlled by ventolin pump. She has sx 2-3 x / week during the day, and is woken up >1x/wk with sx. The only trigger she knows of is heat, otherwise she has no allergies. 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 Pt unable to perform peak flow at time of exam d/t emesis. ER course was notable for: (1) Duonebs x 5 (2) zithromax 500mg x 1 (3) mg sulfate 1gm IVPB (4) solumedrol 125mg (5) 1000ml NS (6) Tachy 127 2/2 tx (7) D dimer 991 Recent Travel: none PAST MEDICAL HISTORY: asthma (dx 4 months ago, during her . Never intubated; admitted here for last exacerbation 2 weeks ago. Was on prednisone, which alleviated sx) PAST SURGICAL HISTORY: none Social History: Smoking: hookah socially Alcohol: socially Drugs: denies Family History: grandma- DM, asthma, mother - DM, HTN Allergies No Known Allergies Allergy (Verified 06/22/17 18:28) HOME MEDICATIONS: Home Medications Medication Instructions Recorded Albuterol Sulfate Inhaler - PRN 06/22/17 [Ventolin HFA Inhaler -] Also on OCP's REVIEW OF SYSTEMS CONSTITUTIONAL: Absent: fever, chills, diaphoresis, generalized weakness, malaise, loss of appetite, weight change HEENT: Absent: rhinorrhea, nasal congestion, throat pain, throat swelling, difficulty swallowing, mouth swelling, ear pain, eye pain, visual changes CARDIOVASCULAR: +tachycardic Absent: chest pain, syncope, palpitations, irregular heart rate, lightheadedness , peripheral edema RESPIRATORY: +cough, SOB, wheezing Absent: cough, shortness of breath, dyspnea with exertion, orthopnea, wheezing, stridor, hemoptysis GASTROINTESTINAL: Absent: abdominal pain, abdominal distension, nausea, vomiting, diarrhea, constipation, melena, hematochezia GENITOURINARY: +nausea, vomiting Absent: dysuria, frequency, urgency, hesitancy, hematuria, flank pain, genital pain MUSCULOSKELETAL: Absent: myalgia, arthralgia, joint swelling, back pain, neck pain SKIN: Absent: rash, itching, pallor HEMATOLOGIC/IMMUNOLOGIC: Absent: easy bleeding, easy bruising, lymphadenopathy, frequent infections ENDOCRINE: Absent: unexplained weight gain, unexplained weight loss, heat intolerance, cold intolerance NEUROLOGIC: Absent: headache, focal weakness or paresthesias, dizziness, unsteady gait, seizure, mental status changes, bladder or bowel incontinence PSYCHIATRIC: Absent: anxiety, depression, suicidal or homicidal ideation, hallucinations. PHYSICAL EXAMINATION Vital Signs 06/22/17 06/22/17 18:29 22:14 Temperature 98.9 F Pulse Rate 127 H Pulse Rate [ 127 H Right Radial] Respiratory 26 H Rate Blood Pressure 155/65 O2 Sat by Pulse 95 95 Oximetry (%) GENERAL: Sitting up, receiving neb tx. Awake, alert, and fully oriented, in mild distress HEAD: Normal with no signs of trauma. EYES: Pupils equal, round and reactive to light, extraocular movements intact, sclera anicteric, conjunctiva clear. EARS, NOSE, THROAT: Ears normal, nares patent, oropharynx clear without exudates. NECK: Normal range of motion, supple LUNGS: mild diffuse expiratory wheezing appreciated b/l. with mild accessory m. usage HEART: tachycardic rate and rhythm, normal S1 and S2 without murmur, rub or gallop. ABDOMEN: Soft, diffusely tender to palpation, not distended, normoactive bowel sounds, no guarding LOWER EXTREMITIES: 2+ posterior tibial pulses, warm, well-perfused. No calf tenderness. No peripheral edema. NEUROLOGICAL: Cranial nerves II-XII intact. PSYCHIATRIC: Worried Laboratory Results - last 24 hr 06/22/17 06/22/17 06/22/17 19:00 19:00 19:00 WBC 7.6 RBC 4.66 Hgb 14.8 Hct 44.5 MCV 95.6 MCH 31.9 MCHC 33.3 RDW 13.1 Plt Count 197 MPV 8.6 Neutrophils % 72.2 Lymphocytes % 16.8 D Monocytes % 5.9 Eosinophils % 4.6 H D Basophils % 0.5 PT with INR 10.70 INR 0.95 Sodium 140 Potassium 3.2 L Chloride 106 Carbon Dioxide 24 Anion Gap 10 BUN 7 Creatinine 0.8 Creat Clearance w eGFR > 60 Random Glucose 118 H Calcium 8.0 L Total Bilirubin 0.5 D AST 13 L ALT 21 Alkaline Phosphatase 101 Total Protein 7.1 Albumin 3.7 Serum , Qual Microbiology 06/22/17 18:40 Nasopharyngeal Swab Influenza Types A,B Antigen (JUAN) - Final 06/22/17 18:40 Nasopharyngeal Swab - Final CXR -without infiltrates. with tracheal narrowing (my read) ASSESSMENT/PLAN: 27 y/o F with PMH asthma (dx 4 months ago, during her . Never intubated ; admitted here for last exacerbation 2 weeks ago. Was on prednisone, which alleviated sx), who presents to the ED with asthma exacerbation over the past day. Pt admitted to med-surg obs for asthma exacerbation 2/2 possible URI and sepsis 2/2 CAP. #Asthma exacerbation 2/2 possible URI -Duonebs q4h scheduled -Received solumedrol 125mg in ED -To continue on prednisone 40mg PO qd -Continue to monitor peak flow -Pulm consult if worsens, will need pulm as outpatient, PFTs #Sepsis 2/2 CAP -pt developed 103F, tachycardia to 133HR while in ED -d/t labored breathing, F/u stat ABG -Started on dose ceftriaxone 1g IVPB stat -Azithromycin 500mg IVPB stat -Robitussin 10mg stat -Robitussin 10mg q4h #Elevated d-dimer, r/o PE -Initial EKG: sinus tachycardia, without other changes -F/u stat EKG -Chest CTA (-) -Wells score: 1.5, low risk -Started on lovenox 65mg qd - will d/c now #PPX DVT: SCD's, will d/c lovenox as CTA (-) #F/E/N -Currently not on fluids -Monitor electrolytes -Regular diet #Dispo observation Visit type - Emergency Visit Emergency Visit: Yes ED Registration Date: 06/23/17 Care time: The patient presented to the Emergency Department on the above date and was hospitalized for further evaluation of their emergent condition. - New Patient This patient is new to me today: Yes Date on this admission: 06/23/17 - Critical Care Critical Care patient: No
[2017-06-23] MEDS ORDERED: SODIUM CHLORIDE 0.9% 1000 ML INFUS.BAG IV ONE (01:40)
[2017-06-23] MEDS ORDERED: AZITHROMYCIN IVPB 250 ML IVPB ONE ×2 (01:48→07:01)
[2017-06-23] MEDS ORDERED: ALBUTEROL SO4 0.083% IH SOL 2.5 MG/3 ML VIAL.NEB. NEB ONE (01:48)
[2017-06-23] MEDS ORDERED: ENOXAPARIN NA (PORCINE) 60 MG/0.6 ML DISP.SYRIN SQ SCH (02:00)
[2017-06-23] MEDS: predniSONE 20 MG TABLET (UD) PO SCH ×2 (04:17→10:21)
[2017-06-23] MEDS ORDERED: CEFTRIAXONE 1 GM in DEXTROSE 5%-WATER - 50 ML IVPB STA (06:31)
[2017-06-23] MEDS ORDERED: guaiFENesin/D-METHORPHAN HB 10 ML UNIT-DOSE CUPS ONE (06:31)
[2017-06-23] MEDS ORDERED: guaiFENesin 200 MG/10 ML 10 ML UNIT-DOSE CUPS PO STA (06:32)
[2017-06-23] MEDS ORDERED: ALBUTEROL SO4 2.5/IPRATROPIUM 0.5 INH SOL 3 ML VIAL.NEB. NEB PRN (07:00)
[2017-06-23] MEDS ORDERED: CEFTRIAXONE 1 GM/50 ML BAG ONE (07:01)
[2017-06-23 07:22] LABS: ARTERIAL BLD GAS O2 SATURATION 97.2 % (90-98.9); ARTERIAL BLOOD GAS BASE EXCESS -6.2 meq/l (-2-2); ARTERIAL BLOOD GAS PCO2 30.8 mmHg (35-45); ARTERIAL BLOOD GAS PO2 92.5 mmHg (80-100); ARTERIAL BLOOD GAS pH 7.37 (7.35-7.45)
[2017-06-23 07:31] LABS: BASO % 0.1 % (0-2.0); HEMATOCRIT 42.6 % (32.4-45.2); LYMPH % 1.4 % (8-40); MCH 31.2 pg (25.7-33.7); MCHC 32.9 g/dl (32.0-36.0); MEAN CELL VOLUME 94.8 fl (80-96); MEAN PLT VOLUME 8.6 fl (7.5-11.1); MONO % 2.1 % (3.8-10.2); NEUT % 96.4 % (42.8-82.8); PLATELET COUNT 202 K/MM3 (134-434); RBC 4.49 M/mm3 (3.60-5.2); RDW 13.1 % (11.6-15.6); WHITE BLOOD COUNT 12.6 K/mm3 (4.0-10.0)
[2017-06-23] MEDS ORDERED: ALBUTEROL SO4 2.5/IPRATROPIUM 0.5 INH SOL 3 ML VIAL.NEB. NEB SCH (08:00)
[2017-06-23] MEDS ORDERED: ACETAMINOPHEN 325 MG TABLET (FP) ONE (08:03)
[2017-06-23] MEDS ORDERED: predniSONE 10 MG TABLET (UD) ONE (08:31)
[2017-06-23] MEDS: ACETAMINOPHEN 500 MG TABLET (FP) PO PRN ×2 (09:02→19:27)
--- NOTE | 2017-06-23 09:21 | EKG ---
Test Reason : Blood Pressure : / mmHG Vent. Rate : 131 BPM Atrial Rate : 131 BPM P-R Int : 144 ms QRS Dur : 076 ms QT Int : 290 ms P-R-T Axes : 052 054 015 degrees QTc Int : 428 ms SINUS TACHYCARDIA NONSPECIFIC ST ABNORMALITY WHEN COMPARED WITH ECG OF 23-JUN-2017 02:11, NO SIGNIFICANT CHANGE WAS FOUND Confirmed by INDY REYNOSO MD ([id number]) on 06/23/2017 9:20:48 AM Referred By: Confirmed By:INDY REYNOSO MD
--- NOTE | 2017-06-23 09:23 | EKG ---
Test Reason : Blood Pressure : / mmHG Vent. Rate : 134 BPM Atrial Rate : 136 BPM P-R Int : 134 ms QRS Dur : 074 ms QT Int : 296 ms P-R-T Axes : 059 059 045 degrees QTc Int : 442 ms SINUS TACHYCARDIA NONSPECIFIC ST ABNORMALITY WHEN COMPARED WITH ECG OF 25-MAR-2017 10:42, VENT. RATE HAS INCREASED BY 47 BPM Confirmed by INDY REYNOSO MD ([id number]) on 06/23/2017 9:22:59 AM Referred By: Confirmed By:INDY REYNOSO MD
--- NOTE | 2017-06-23 09:42 | EKG ---
Test Reason : Blood Pressure : / mmHG Vent. Rate : 115 BPM Atrial Rate : 115 BPM P-R Int : 134 ms QRS Dur : 082 ms QT Int : 324 ms P-R-T Axes : 055 043 040 degrees QTc Int : 448 ms SINUS TACHYCARDIA WHEN COMPARED WITH ECG OF 25-MAR-2017 10:42, NO SIGNIFICANT CHANGE WAS FOUND Confirmed by INDY REYNOSO MD ([id number]) on 06/23/2017 9:42:23 AM Referred By: Confirmed By:INDY REYNOSO MD
[2017-06-23] MEDS: guaiFENesin 200 MG/10 ML 10 ML UNIT-DOSE CUPS PO PRN ×2 (10:21→19:32)
[2017-06-23] MEDS: methylPREDNISolone NA SUCC 40 MG/1 ML VIAL IVPUSH SCH ×2 (11:00→18:33)
--- NOTE | 2017-06-23 12:41 | CON.PULM ---
Consult Consult Specialty:: PULMONARY Referred by:: TELLY Reason for Consultation:: ASTHMA - History of Present Illness Chief Complaint: SOB/COUGH/FEVER/WHEEZE History of Present Illness: The patient is a 27 year old female, with a significant past medical history of asthma ( never intubated), seen in our ER 4x in last three months for asthma complaints, who presents to the emergency department with asthma exacerbation for approx. one day. The patient reports associated measured fever of 101F and productive cough with cream colored sputum. The patient reports she used an albuterol inhaler at home with minimal relief. She denies recent fever, chills , headache or dizziness. She denies recent nausea, vomit, diarrhea or constipation. She denies recent chest pain or palpitations. 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 No: Previously Intubated Gastrointestinal: No: Ascites, Cancer, Constipation, Crohn's Disease, Diverticulitis, Diverticulosis, Esophageal Varices, Gastritis, GERD, GI Bleed, Hemorrhoids, Hiatal Hernia, Inflamatory Bowel Disease, Irritable Bowel Disease, Pancreatitis, Peptic Ulcer Disease, Ulcerative Colitis, Other Hepatobiliary: No: Cirrhosis, Cholelithiasis, Cholecystitis, Choledocholithiasis , Hepatitis A, Hepatitis B, Hepatitis C, Other Renal/: No: Renal Failure, Renal Inusuff, BPH, Cancer, Hematuria, Hemodialysis , Neurogenic Bladder, Renal Calculi, UTI, Other Reproductive: Yes: Other (Gave in Jan) Heme/Onc: No: Anemia Infectious Disease: No: AIDS - Alcohol/Substance Use Hx Alcohol Use: No - Smoking History Smoking history: Never smoked Have you smoked in the past 12 months: No - Social History History of Recent Travel: No Home Medications - Allergies Allergies/Adverse Reactions: Allergies Allergy/AdvReac Type Severity Reaction Status Date / Time No Known Allergies Allergy Verified 06/22/17 18:28 - Home Medications Home Medications: Ambulatory Orders Albuterol Sulfate Inhaler - [Ventolin HFA Inhaler -] PRN 06/22/17 Family Disease History - Family Disease History Family History: Unremarkable Review of Systems - Review of Systems Constitutional: reports: Fever Eyes: denies: Blurred Vision HENT: denies: Difficult Swallowing Neck: denies: Decreased ROM Cardiovascular: reports: Chest Pain Respiratory: reports: Cough, Exercise Intolerance, Hemoptysis, SOB, SOB on Exertion, Wheezing Gastrointestinal: denies: Abdominal Pain Genitourinary: denies: Burning Breasts: reports: No Symptoms Reported Musculoskeletal: reports: No Symptoms Integumentary: reports: No Symptoms Neurological: reports: No Symptoms Hematology/Lymphatic: reports: No Symptoms Physical Exam Vital Sings: Vital Signs Temperature 102.0 F H 06/23/17 09:00 Pulse Rate 128 H 06/23/17 09:00 Respiratory Rate 22 06/23/17 09:00 Blood Pressure 131/58 06/23/17 09:00 O2 Sat by Pulse Oximetry (%) 95 06/23/17 08:54 Constitutional: Yes: Calm Eyes: Yes: EOM Intact HENT: Yes: Normocephalic Neck: Yes: Trachea Midline Cardiovascular: Yes: Regular Rate and Rhythm, S1, S2 Respiratory: Yes: Rhonchi (left base), Wheezes Gastrointestinal: Yes: Soft Extremities: Yes: WNL Neurological: Yes: Alert ...Motor Strength: WNL Psychiatric: Yes: WNL Labs: CBC, BMP 06/23/17 06:30 06/22/17 19:00 ABG Results ABG pH 7.37 (7.35-7.45) 06/23/17 07:11 ABG pCO2 at Pt Temp 30.8 mmHg (35-45) L 06/23/17 07:11 ABG pO2 at Pt Temp 92.5 mmHg (80-100) 06/23/17 07:11 ABG HCO3 17.4 meq/L (22-26) L 06/23/17 07:11 ABG O2 Sat (Measured) 97.2 % (90-98.9) 06/23/17 07:11 ABG O2 Content 19.1 % vol (15-22) 06/23/17 07:11 ABG Base Excess -6.2 meq/l (-2-2) L 06/23/17 07:11 Imaging - Results Chest X-ray: Report Reviewed, Image Reviewed Cat Scan: Report Reviewed, Image Reviewed Problem List - Problems (1) Asthma with acute exacerbation in adult Code(s): J45.901 - UNSPECIFIED ASTHMA WITH (ACUTE) EXACERBATION (2) CAP (community acquired pneumonia) Code(s): J18.9 - PNEUMONIA, UNSPECIFIED ORGANISM (3) Sepsis Code(s): A41.9 - SEPSIS, UNSPECIFIED ORGANISM (4) Asthma Code(s): J45.909 - UNSPECIFIED ASTHMA, UNCOMPLICATED Qualifiers: Asthma severity: mild Asthma persistence: intermittent Asthma complication type: uncomplicated Qualified Code(s): J45.20 - Mild intermittent asthma, uncomplicated Assessment/Plan CHRONIC PERSISTENT ASTHMA WITH POOR COMPLIANCE OUTPATIENT LEFT LOWER LOBE HAZY DENSITY O2 TO KEEP SAT GREATER THAN 90% DAILY PEAK FLOW BRONCHODILATORS/STEROIDS/ANTIBIOTICS OBTAIN OFFICIAL READING OF CT CHEST Kiko LÓPEZ MD
[2017-06-23] MEDS: ALBUTEROL SO4 2.5/IPRATROPIUM 0.5 INH SOL 3 ML VIAL.NEB. NEB SCH ×3 (13:29→21:00)
[2017-06-24] MEDS ORDERED: PT OWN MED DRAWER 7, Y5N ONE (00:02)
[2017-06-24] MEDS ORDERED: AZITHROMYCIN IVPB 500 MG in DEXTROSE 5%-WATER - 250 ML IVPB ONE (01:00)
[2017-06-24] MEDS: methylPREDNISolone NA SUCC 40 MG/1 ML VIAL IVPUSH SCH ×3 (01:28→17:44)
[2017-06-24] MEDS ORDERED: diphenhydrAMINE HCL 25 MG CAPSULE (FP) PO ONE (02:31)
--- NOTE | 2017-06-24 02:36 | HOSP ---
Subjective - Review of Symptoms Events since last encounter: Hospitalist Encounter Notified by the primary RN, patient reports pain, itching and red rash to her right antecubital fossa while receiving Azithromycin IV. Arrived to bedside, patient is awake, alert and oriented, reports pain, rash, and itching to her RAC. Patient denies dysphagia, SOB, chest tightness. A 27 y/o female PMHx of Asthma. Admitted Asthma, Sepsis secondary to CAP. P - Benadryl po - d/c Azithromycin - RN to change peripheral IV site - Will start Levaquin - Will continue to monitor Physical Examination Vital Signs: Vital Signs Temperature 100.1 F H 06/23/17 20:06 Pulse Rate 103 H 06/23/17 20:06 Respiratory Rate 18 06/23/17 20:06 Blood Pressure 118/70 06/23/17 20:06 O2 Sat by Pulse Oximetry (%) 95 06/23/17 20:06 Constitutional: Yes: Well Nourished, No Distress, Calm Eyes: Yes: WNL, Conjunctiva Clear, PERRL HENT: Yes: WNL, Atraumatic, Normocephalic Neck: Yes: WNL, Supple, Trachea Midline Cardiovascular: Yes: WNL, Regular Rate and Rhythm Respiratory: Yes: Diminished, Rhonchi Gastrointestinal: Yes: WNL, Normal Bowel Sounds, Soft Renal/: Yes: WNL Breast(s): Yes: WNL Musculoskeletal: Yes: WNL Extremities: Yes: Erythema (RAC) Edema: Yes Edema: RUE: Trace (above the antecubutal fossa) Peripheral Pulses WNL: Yes Integumentary: Yes: Erythema (RAC), Petechiae (RAC), Rash (RAC) Neurological: Yes: WNL, Alert, Oriented ...Motor Strength: WNL Psychiatric: Yes: WNL, Alert, Oriented Labs: CBC, BMP 06/23/17 06:30 06/22/17 19:00
[2017-06-24] MEDS: guaiFENesin 200 MG/10 ML 10 ML UNIT-DOSE CUPS PO PRN ×3 (02:59→17:44)
[2017-06-24] MEDS ORDERED: LEVOFLOXACIN 500 MG IVPB 500 MG/100 ML BAG IVPB ONE (03:31)
[2017-06-24] MEDS: ALBUTEROL SO4 2.5/IPRATROPIUM 0.5 INH SOL 3 ML VIAL.NEB. NEB SCH ×4 (05:00→21:03)
[2017-06-24 07:56] LABS: BASO % 0.3 % (0-2.0); HEMATOCRIT 42.8 % (32.4-45.2); HEMOGLOBIN 14.2 GM/dL (10.7-15.3); LYMPH % 3.1 % (8-40); MCH 31.5 pg (25.7-33.7); MCHC 33.1 g/dl (32.0-36.0); MEAN CELL VOLUME 95.4 fl (80-96); MEAN PLT VOLUME 8.8 fl (7.5-11.1); NEUT % 93.6 % (42.8-82.8); PLATELET COUNT 200 K/MM3 (134-434); RBC 4.49 M/mm3 (3.60-5.2); RDW 12.9 % (11.6-15.6)
[2017-06-24 08:25] LABS: ANION GAP 8 (8-16); BLOOD UREA NITROGEN 9 mg/dL (7-18); CALCIUM 8.2 mg/dL (8.5-10.1); CHLORIDE 108 mmol/L (98-107); CO2 23 mmol/L (21-32); GLUCOSE,RANDOM 130 mg/dL (74-106); POTASSIUM 4.1 mmol/L (3.5-5.1); SODIUM 139 mmol/L (136-145)
[2017-06-24 08:28] LABS: CREATININE 0.7 mg/dL (0.55-1.02); MAGNESIUM 2.2 mg/dL (1.8-2.4); PHOSPHOROUS 2.1 mg/dL (2.5-4.9)
[2017-06-24] MEDS ORDERED: CEFTRIAXONE 1 G/50 ML PREMIX 50 ML IVPB SCH (10:00)
[2017-06-24] MEDS: ACETAMINOPHEN 500 MG TABLET (FP) PO PRN ×2 (10:42→20:04)
--- NOTE | 2017-06-24 12:41 | CON.CARD ---
Consult Consult Specialty:: Cardiology Referred by:: Hospitalist Reason for Consultation:: Cardiac evaluation - History of Present Illness Chief Complaint: Shortness of breath History of Present Illness: Patient is a 27 year old female with recent diagnosis of bronchial asthma when she was . Since then, she has been taking intermittent bronchodilators, never intubated and reports no other medical problems. She has had gestational diabetes, but it has been resolved. She currently reports episode of fever and productive cough. She complained of chest tightness, currently feels better. She denies paroxysmal nocturnal dyspnea or orthopnea. She denies headache or lightheadedness. She denies nausea, vomiting, diarrhea or abdominal pain. - History Source History Provided By: Patient, Medical Record Limitations to Obtaining History: No Limitations - Past Medical History Pulmonary: Yes: Asthma - Past Surgical History Past Surgical History: Yes: None - Alcohol/Substance Use Hx Alcohol Use: Yes (Social) - Smoking History Smoking history: Never smoked Have you smoked in the past 12 months: No - Social History History of Recent Travel: No Home Medications - Allergies Allergies/Adverse Reactions: Allergies Allergy/AdvReac Type Severity Reaction Status Date / Time No Known Allergies Allergy Verified 06/22/17 18:28 - Home Medications Home Medications: Ambulatory Orders Albuterol Sulfate Inhaler - [Ventolin HFA Inhaler -] PRN 06/22/17 Review of Systems - Review of Systems Constitutional: reports: Fever. denies: Chills HENT: reports: No Symptoms Cardiovascular: reports: Chest Pain, Shortness of Breath. denies: Palpitations Respiratory: reports: Cough, SOB. denies: Hemoptysis, Orthopnea, PND, Wheezing Gastrointestinal: denies: Abdominal Pain, Constipation, Diarrhea, Melena, Nausea , Rectal Bleeding, Vomiting Genitourinary: denies: Dysuria, Hematuria Musculoskeletal: denies: Back Pain, Joint Pain Neurological: denies: Dizziness, Headache, Seizure, Syncope Vital Signs: Vital Signs Temperature 98.2 F 06/24/17 09:00 Pulse Rate 118 H 06/24/17 09:00 Respiratory Rate 16 06/24/17 09:00 Blood Pressure 114/68 06/24/17 09:00 O2 Sat by Pulse Oximetry (%) 98 06/24/17 03:18 Constitutional: Yes: Well Nourished Eyes: Yes: PERRL HENT: Yes: Atraumatic Neck: Yes: Supple Respiratory: Yes: Diminished Gastrointestinal: Yes: Normal Bowel Sounds, Soft. No: Tenderness Cardiovascular: Yes: Regular Rate and Rhythm, Tachycardia JVD: No Carotid Bruit: No PMI: Non-Displaced Heart Sounds: Yes: S1, S2. No: Gallop Edema: No - Other Data Labs, Other Data: CBC, BMP 06/24/17 05:05 06/24/17 05:05 INR, PTT INR 0.95 (0.82-1.09) 06/22/17 19:00 Laboratory Results - last 24 hr 06/24/17 06/24/17 06/24/17 05:05 05:05 05:05 WBC 10.0 RBC 4.49 Hgb 14.2 Hct 42.8 MCV 95.4 MCH 31.5 MCHC 33.1 RDW 12.9 Plt Count 200 MPV 8.8 Neutrophils % 93.6 H Lymphocytes % 3.1 L D Monocytes % 3.0 L Eosinophils % 0.0 Basophils % 0.3 Sodium 139 Potassium 4.1 Chloride 108 H Carbon Dioxide 23 Anion Gap 8 BUN 9 Creatinine 0.7 Random Glucose 130 H Calcium 8.2 L Phosphorus 2.1 L Magnesium 2.2 Creatine Kinase 130 Cancelled Troponin I < 0.02 Cancelled Sinus tachycardia Problem List - Problems (1) Atypical chest pain Code(s): R07.89 - OTHER CHEST PAIN (2) Sinus tachycardia Code(s): R00.0 - TACHYCARDIA, UNSPECIFIED (3) Asthma with acute exacerbation in adult Code(s): J45.901 - UNSPECIFIED ASTHMA WITH (ACUTE) EXACERBATION (4) Sepsis Code(s): A41.9 - SEPSIS, UNSPECIFIED ORGANISM Qualifiers: Sepsis type: sepsis due to unspecified organism Qualified Code(s): A41.9 - Sepsis, unspecified organism Assessment/Plan 1. Bronchial asthma 2. Chest pain syndrome - atypical due to above 3. Sinus tachycardia PLAN: 1. Steroid and bronchodilator 2. Antibiotic was given and to be used at the discretion of the medical team 3. No need for specific cardiac therapy 4. Transthoracic echocardiography can be done to assess LV/RV and valvular function Curtis Thompson MD
[2017-06-24] MEDS ORDERED: NAPH,MB-DB/K PH,MBDB POWDER PACKET PO ONE (12:42)
--- NOTE | 2017-06-24 12:56 | PN ---
Progress Note (short form) - Note Progress Note: Subjective: The patient was seen and examined at the bedside, she reports feeling better today. She states she has come chest discomfort when she coughs Current Medications Generic Name Dose Route Start Last Admin Trade Name Freq PRN Reason Stop Dose Admin Acetaminophen 500 mg 06/23/17 06:35 06/24/17 10:42 Tylenol - PO 500 mg Q4H PRN Administration FEVER Albuterol/Ipratropium 1 amp 06/23/17 14:00 06/24/17 09:38 Duoneb - NEB 1 amp Q4HWA BRIANNA Administration Guaifenesin 10 ml 06/23/17 06:32 06/24/17 10:17 Robitussin - PO 10 ml Q6H PRN Administration COUGH CEFTRIAXONE 1 G/50 ML PREMIX 50 mls @ 100 mls/hr 06/24/17 10:00 06/24/17 10: 17 Ceftriaxone 1 Gm-D5w Bag IVPB 100 mls/hr DAILY BRIANNA Administration Methylprednisolone Sodium Succinate 40 mg 06/23/17 10:30 06/24/17 10:17 Solu-Medrol - IVPUSH 40 mg Q8H-IV BRIANNA Administration Objective: Vital Signs Period Temp Pulse Resp BP Sys/Lindsey Pulse Ox Last 24 Hr 98.2 F-100.1 F 94-118 16-22 104-118/47-78 97-98 Physical Exam: General: NAD, A&Ox3 Lungs: B/l rhonchi Heart: RRR, S1S2 Abd: Soft, non-tender, non-distended. Normoactive bowel sounds Ext: Warm, well-perfused. 2+ DP/PT bilaterally Neuro: CN 2-12 intact CBCD WBC 10.0 K/mm3 (4.0-10.0) 06/24/17 05:05 RBC 4.49 M/mm3 (3.60-5.2) 06/24/17 05:05 Hgb 14.2 GM/dL (10.7-15.3) 06/24/17 05:05 Hct 42.8 % (32.4-45.2) 06/24/17 05:05 MCV 95.4 fl (80-96) 06/24/17 05:05 MCHC 33.1 g/dl (32.0-36.0) 06/24/17 05:05 RDW 12.9 % (11.6-15.6) 06/24/17 05:05 Plt Count 200 K/MM3 (134-434) 06/24/17 05:05 MPV 8.8 fl (7.5-11.1) 06/24/17 05:05 CMP Sodium 139 mmol/L (136-145) 06/24/17 05:05 Potassium 4.1 mmol/L (3.5-5.1) 06/24/17 05:05 Chloride 108 mmol/L (98-107) H 06/24/17 05:05 Carbon Dioxide 23 mmol/L (21-32) 06/24/17 05:05 Anion Gap 8 (8-16) 06/24/17 05:05 BUN 9 mg/dL (7-18) 06/24/17 05:05 Creatinine 0.7 mg/dL (0.55-1.02) 06/24/17 05:05 Creat Clearance w eGFR > 60 (>60) 06/22/17 19:00 Random Glucose 130 mg/dL (74-106) H 06/24/17 05:05 Calcium 8.2 mg/dL (8.5-10.1) L 06/24/17 05:05 Total Bilirubin 0.5 mg/dL (0.2-1.0) D 06/22/17 19:00 AST 13 U/L (15-37) L 06/22/17 19:00 ALT 21 U/L (12-78) 06/22/17 19:00 Alkaline Phosphatase 101 U/L (45-117) 06/22/17 19:00 Total Protein 7.1 g/dl (6.4-8.2) 06/22/17 19:00 Albumin 3.7 g/dl (3.4-5.0) 06/22/17 19:00 CARDIAC ENZYMES Creatine Kinase 125 IU/L (26-192) 06/23/17 06:30 Troponin I < 0.02 ng/ml (0.00-0.05) 06/23/17 06:30 Microbiology 06/22/17 18:40 Nasopharyngeal Swab Influenza Types A,B Antigen (JUAN) - Final 06/22/17 18:40 Nasopharyngeal Swab - Final Assessment: This is a 27 year old female with PMHx of asthma, who presented to the ED with productive cough, chest tightness that worsened overnight and fever. Plan: 1) Acute asthma exacerbation - Continue Solu-medrol 40mg q8h - Continue Robitussin - Continue Duonebs - Daily peak flow - O2 via nc prn - Appreciate pulmonary consult 2) Sepsis 2/2 possible CAP - Continue Levaquin (was on Ceftriaxone and Azithromycin but developed rash while received Azithromycin) - Afebrile - WBC wnl - Influenza A&B negative - Blood cultures ordered - Continue to monitor 3) F/E/N: - Regular diet - Monitor electrolytes 4) Prophylaxis: - OOB ambulating - SCDs bilaterally 5) Dispo: - Requires continued inpatient care CODE STATUS: FULL CODE Visit type - Emergency Visit Emergency Visit: Yes ED Registration Date: 06/23/17 Care time: The patient presented to the Emergency Department on the above date and was hospitalized for further evaluation of their emergent condition. - New Patient This patient is new to me today: Yes Date on this admission: 06/24/17 - Critical Care Critical Care patient: No
--- NOTE | 2017-06-24 13:20 | PN ---
Progress Note (short form) - Note Progress Note: PULMONARY VSS/AFEBRILE SUBJECTIVE IMPROVEMENT PEAK FLOW 300 L/M ANICTERIC IMPROVED B/L WHEEZE S1S2 BS+ NO EDEMA LABS/MEDS/NOTES IMAGES REVIEWED CHRONIC PERSISTENT ASTHMA WITH POOR COMPLIANCE OUTPATIENT LEFT LOWER LOBE HAZY DENSITY O2 TO KEEP SAT GREATER THAN 90% DAILY PEAK FLOW BRONCHODILATORS/STEROIDS/ANTIBIOTICS ANTICIPATE DISCHARGE TOMORROW NEED TO F/U LIVER LESION OUTPATIENT R MARIBEL SANTOS Problem List - Problems (1) Asthma with acute exacerbation in adult Code(s): J45.901 - UNSPECIFIED ASTHMA WITH (ACUTE) EXACERBATION (2) CAP (community acquired pneumonia) Code(s): J18.9 - PNEUMONIA, UNSPECIFIED ORGANISM (3) Sepsis Code(s): A41.9 - SEPSIS, UNSPECIFIED ORGANISM (4) Asthma Code(s): J45.909 - UNSPECIFIED ASTHMA, UNCOMPLICATED Qualifiers: Asthma severity: mild Asthma persistence: intermittent Asthma complication type: uncomplicated Qualified Code(s): J45.20 - Mild intermittent asthma, uncomplicated
[2017-06-25] MEDS: ALBUTEROL SO4 2.5/IPRATROPIUM 0.5 INH SOL 3 ML VIAL.NEB. NEB SCH ×3 (02:28→09:54)
[2017-06-25] MEDS: methylPREDNISolone NA SUCC 40 MG/1 ML VIAL IVPUSH SCH (04:02)
[2017-06-25] MEDS: ACETAMINOPHEN 500 MG TABLET (FP) PO PRN (06:25)
[2017-06-25 07:08] LABS: HEMATOCRIT 45.3 % (32.4-45.2); MCH 31.6 pg (25.7-33.7); MCHC 33.2 g/dl (32.0-36.0); MEAN CELL VOLUME 95.1 fl (80-96); MEAN PLT VOLUME 8.5 fl (7.5-11.1); PLATELET COUNT 208 K/MM3 (134-434); RBC 4.76 M/mm3 (3.60-5.2); RDW 13.2 % (11.6-15.6); WHITE BLOOD COUNT 8.7 K/mm3 (4.0-10.0)
[2017-06-25 07:20] LABS: CHLORIDE 103 mmol/L (98-107); POTASSIUM 3.8 mmol/L (3.5-5.1); SODIUM 140 mmol/L (136-145)
[2017-06-25 07:35] LABS: ALBUMIN 3.6 g/dl (3.4-5.0); ALK PHOS 87 U/L (45-117); ANION GAP 13 (8-16); BILIRUBIN,TOTAL 0.4 mg/dL (0.2-1.0); BLOOD UREA NITROGEN 10 mg/dL (7-18); CALCIUM 8.9 mg/dL (8.5-10.1); CO2 24 mmol/L (21-32); CREATININE 0.7 mg/dL (0.55-1.02); GLUCOSE,RANDOM 132 mg/dL (74-106); SGOT/AST 81 U/L (15-37); SGPT/ALT 97 U/L (12-78); TOT PROT 7.4 g/dl (6.4-8.2)
[2017-06-25 08:44] LABS: PHOSPHOROUS 3.3 mg/dL (2.5-4.9)
[2017-06-25] MEDS ORDERED: LEVOFLOXACIN 250 MG TABLET (FP) PO SCH (09:15)
--- NOTE | 2017-06-25 09:24 | DS ---
Physical Examination Vital Signs: Vital Signs Temperature 98.5 F 06/25/17 05:19 Pulse Rate 94 H 06/25/17 05:19 Respiratory Rate 18 06/25/17 05:19 Blood Pressure 135/75 06/25/17 05:19 O2 Sat by Pulse Oximetry (%) 98 06/24/17 20:00 Findings/Remarks: Lungs CTA bilaterally Labs: CBC, BMP 06/25/17 05:05 06/25/17 05:05 Discharge Summary Reason For Visit: ASTHMA W/ACUTE EXACERBATION Current Active Problems Asthma with acute exacerbation in adult (Acute) Atypical chest pain (Acute) CAP (community acquired pneumonia) (Acute) Sepsis (Acute) Sinus tachycardia (Acute) Condition: Improved - Instructions Diet, Activity, Other Instructions: Please return to the ED with new, persistent, or worsening symptoms. Please follow-up with providers as indicated. Prednisone taper: Take 40mg by mouth twice a day for 2.5 days (first dose tonight) 40mg daily for 3 days 30mg daily for 3 days 20mg daily for 3 days 10mg daily for 3 days Please follow-up with the workers compensation claims specialist for outpatient pulmonary function testing. Please follow-up with your primary care provider for further evaluation of your elevated d-dimer (your CT scan of your chest showed no pulmonary embolism and your lower extremity doppler was negative for a deep vein thromboses in both legs) Also, you MUST follow-up with your primary care provider within 2-3 days for an evaluation of your liver lesion and to schedule an outpatient MRI of your liver. Referrals: Ayo Rousseau MD [Staff Physician] - (Please follow-up with Dr. Rousseau within 3-5 days for outpatient pulmonary function testing ) Rios Hale MD [Staff Physician] - (Please follow-up with your primary care provider within 2-3 days for further evaluation of your right hepatic lobe lesion and to schedule an outpatient MRI of the liver with and without intravenous gadolinium.) Disposition: HOME - Home Medications Comprehensive Discharge Medication List: Ambulatory Orders Albuterol Sulfate Inhaler - [Ventolin HFA Inhaler -] PRN 06/22/17 Acetaminophen [Tylenol .Extra-Strength -] 500 mg PO Q4H PRN tablet 06/25/17 Albuterol 2.5/Ipratropium 0.5 [Duoneb -] 1 amp NEB Q4H PRN #120 amp 06/25/17 Albuterol Sulfate Inhaler - [Ventolin HFA Inhaler -] 1 - 2 inh PO Q4H PRN #1 inhaler 06/25/17 Guaifenesin [Robitussin -] 10 ml PO Q6H PRN cup 06/25/17 Levofloxacin [Levaquin -] 750 mg PO DAILY #6 tablet 06/25/17 Nebulizer [Aeroeclipse II] 1 each PRN PRN #1 each 06/25/17 Prednisone 10 mg PO ASDIR #39 tablet 06/25/17
[2017-06-25] MEDS ORDERED: predniSONE 20 MG TABLET (UD) PO SCH ×2 (10:00→16:00)
[2017-06-25] MEDS ORDERED: LEVOFLOXACIN 500 MG TABLET (FP) PO SCH (10:00)
[2017-06-25 10:37] VITALS: TEMP 98.2
--- NOTE | 2017-06-25 10:44 | PN ---
Progress Note, Physician Chief Complaint: Feels better History of Present Illness: Patient was seen and examined. Awake and alert. Chart was reviewed Denies chest pain or palpitations. Breathing comfortable - Current Medication List Current Medications: Active Medications Acetaminophen (Tylenol -) 500 mg PO Q4H PRN PRN Reason: FEVER Last Admin: 06/25/17 06:25 Dose: 500 mg Albuterol/Ipratropium (Duoneb -) 1 amp NEB Q4H BRIANNA Last Admin: 06/25/17 09:54 Dose: 1 amp Guaifenesin (Robitussin -) 10 ml PO Q6H PRN PRN Reason: COUGH Last Admin: 06/24/17 17:44 Dose: 10 ml Levofloxacin (Levaquin -) 750 mg PO DAILY@0600 [facility] Last Admin: 06/25/17 10:37 Dose: 750 mg Prednisone (Deltasone -) 40 mg PO BID [facility] - Objective Vital Signs: Vital Signs Temperature 98.2 F 06/25/17 10:00 Pulse Rate 96 H 06/25/17 10:00 Respiratory Rate 16 06/25/17 10:00 Blood Pressure 132/68 06/25/17 10:00 O2 Sat by Pulse Oximetry (%) 98 06/24/17 20:00 Constitutional: Yes: Well Nourished Eyes: Yes: PERRL HENT: Yes: Atraumatic Neck: Yes: Supple Cardiovascular: Yes: Regular Rate and Rhythm, S1, S2. No: Murmur Respiratory: Yes: CTA Bilaterally Gastrointestinal: Yes: Normal Bowel Sounds, Soft. No: Tenderness Edema: No Additional Findings/Remarks: - Review of Systems Constitutional: denies: Fever. denies: Chills HEENT:: No Symptoms Cardiovascular: reports: Chest Pain, Shortness of Breath. denies: Palpitations Respiratory: reports: Cough, SOB. denies: Hemoptysis, Orthopnea, PND, Wheezing Gastrointestinal: denies: Abdominal Pain, Constipation, Diarrhea, Melena, Nausea , Rectal Bleeding, Vomiting Genitourinary: denies: Dysuria, Hematuria Musculoskeletal: denies: Back Pain, Joint Pain Neurological: denies: Dizziness, Headache, Seizure, Syncope Labs: CBC, BMP 06/25/17 05:05 06/25/17 05:05 Problem List - Problems (1) Atypical chest pain Code(s): R07.89 - OTHER CHEST PAIN (2) Sinus tachycardia Code(s): R00.0 - TACHYCARDIA, UNSPECIFIED (3) Asthma with acute exacerbation in adult Code(s): J45.901 - UNSPECIFIED ASTHMA WITH (ACUTE) EXACERBATION (4) Sepsis Code(s): A41.9 - SEPSIS, UNSPECIFIED ORGANISM Qualifiers: Sepsis type: sepsis due to unspecified organism Qualified Code(s): A41.9 - Sepsis, unspecified organism Assessment/Plan 1. Bronchial asthma 2. Chest pain syndrome - atypical due to above 3. Sinus tachycardia PLAN: 1. Steroid and bronchodilator 2. Antibiotic was given and to be used at the discretion of the medical team 3. No need for specific cardiac therapy 4. Transthoracic echocardiography can be done to assess LV/RV and valvular function, but no need to stay inpatient Discharge planning Curtis Thompson MD
--- NOTE | 2017-06-25 13:06 | PN ---
Progress Note (short form) - Note Progress Note: PULMONARY VSS/AFEBRILE SUBJECTIVE IMPROVEMENT PEAK FLOW 300 L/M ANICTERIC IMPROVED B/L WHEEZE S1S2 BS+ NO EDEMA LABS/MEDS/NOTES IMAGES REVIEWED CHRONIC PERSISTENT ASTHMA WITH POOR COMPLIANCE OUTPATIENT LEFT LOWER LOBE HAZY DENSITY O2 TO KEEP SAT GREATER THAN 90% DAILY PEAK FLOW BRONCHODILATORS/STEROIDS/ANTIBIOTICS DISCHARGE PLANNING NEED TO F/U LIVER LESION OUTPATIENT R MARIBEL SANTOS Problem List - Problems (1) Asthma with acute exacerbation in adult Code(s): J45.901 - UNSPECIFIED ASTHMA WITH (ACUTE) EXACERBATION (2) CAP (community acquired pneumonia) Code(s): J18.9 - PNEUMONIA, UNSPECIFIED ORGANISM (3) Sepsis Code(s): A41.9 - SEPSIS, UNSPECIFIED ORGANISM Qualifiers: Sepsis type: sepsis due to unspecified organism Qualified Code(s): A41.9 - Sepsis, unspecified organism (4) Asthma Code(s): J45.909 - UNSPECIFIED ASTHMA, UNCOMPLICATED Qualifiers: Asthma severity: mild Asthma persistence: intermittent Asthma complication type: uncomplicated Qualified Code(s): J45.20 - Mild intermittent asthma, uncomplicated
[2017-06-25 14:57] VITALS: BP 136/76; PULSE 96
== END 2017-06-25 14:33 | disposition home or self-care (01) | DRG 720 ==
LOC: JER 18:22 → JERBED 06-23 00:28 → UNDOADMOB 06-23 00:59 → JERBED 06-23 00:59 → J4W 06-23 11:30 → OBSVTOIN 06-23 12:08
PROVIDERS: ADMIT Internal Medicine; ATTEND Registered Nurse
DX: A41.9 Sepsis, unspecified organism (principal); J45.21 Mild intermittent asthma with (acute) exacerbation; J18.9 Pneumonia, unspecified organism; J06.9 Acute upper respiratory infection, unspecified; R07.89 Other chest pain; R00.0 Tachycardia, unspecified
CPT/HCPCS: 36415; 36600; 71046-TC; 71275-TC; 80048; 80053; 82550; 82803; 83735; 84100; 84484; 84703; 85025; 85027; 85379; 85610; 87804; 93005; 93010; 93970-TC; 94150; 94640; 99285-25; G0378

== ENCOUNTER 2017-08-03 13:40 | Emergency (ER) | payer OTHER ==
[2017-08-03 13:51] VITALS: BMI 26.2
[2017-08-03] MEDS ORDERED: ALBUTEROL SO4 2.5/IPRATROPIUM 0.5 INH SOL 3 ML VIAL.NEB. NEB ONE ×3 (14:10→14:53)
[2017-08-03] MEDS ORDERED: predniSONE 20 MG TABLET (UD) PO ONE (14:19)
[2017-08-03] MEDS ORDERED: predniSONE 20 MG TABLET (UD) ONE (14:23)
--- NOTE | 2017-08-03 14:37 | PDOC ---
History of Present Illness - General Chief Complaint: Asthma Stated Complaint: ASTHMA Time Seen by Provider: 08/03/17 13:57 History Source: Patient Exam Limitations: No Limitations - History of Present Illness Initial Comments: 08/03/17 14:42 27-year-old female presents the emergency room for evaluation of cough and wheezing unrelieved with her albuterol inhaler for the past 2-3 days. Patient states also feels bilateral chest tightness worsened with coughing episodes. Patient denies fever, chills, palpitation, nausea, or abdominal pain. Patient states has been to the ER before for similar symptoms. Timing/Duration: reports: week Severity: reports: mild, moderate Possible Cause: Yes: frequent episodes Modifying Factors: improves with: albuterol inhaler, coughing Associated Symptoms: reports: cough, wheezing Past History - Travel Traveled outside of the country in the last 30 days: No - Past Medical History Allergies/Adverse Reactions: Allergies Allergy/AdvReac Type Severity Reaction Status Date / Time No Known Allergies Allergy Verified 08/03/17 13:42 Home Medications: Ambulatory Orders Albuterol Sulfate Inhaler - [Ventolin HFA Inhaler -] 1 - 2 inh PO Q4H PRN #1 inhaler 06/25/17 predniSONE [Deltasone -] 40 mg PO DAILY #8 tablet 08/03/17 Asthma: Yes CVA: No COPD: No Diabetes: Yes (Gestetional Diabetis) - Immunization History Immunization Up to Date: Yes - Suicide/Smoking/Psychosocial Hx Smoking History: Never smoked Have you smoked in the past 12 months: No Hx Alcohol Use: Yes (Social) Drug/Substance Use Hx: No Substance Use Type: None Patient Lives Alone: No Lives with/in: spouse/SO Review of Systems - Review of Systems Constitutional: No: Symptoms Reported HEENTM: No: Symptoms Reported Respiratory: Yes: Cough, SOB with Exertion, Wheezing Cardiac (ROS): No: Symptoms Reported ABD/GI: No: Symptoms Reported : No: Symptoms Reported Musculoskeletal: No: Symptoms Reported Integumentary: No: Symptoms Reported Neurological: No: Symptoms reported *Physical Exam - Vital Signs Last Vital Signs Temp Pulse Resp BP Pulse Ox 96 H 30 H 112/57 98 08/03/17 13:42 08/03/17 13:42 08/03/17 13:42 08/03/17 13:42 - Physical Exam General Appearance: Yes: Nourished, Appropriately Dressed. No: Apparent Distress HEENT: positive: EOMI, PILY. negative: Pale Conjunctivae Neck: positive: Supple Respiratory/Chest: positive: Accessory Muscle Use, Rapid RR, Wheezing ( expiratory ). negative: Respiratory Distress, Rhonchi Cardiovascular: positive: Regular Rhythm, Regular Rate. negative: Murmur Gastrointestinal/Abdominal: positive: Soft Integumentary: positive: Normal Color, Warm, Moist Neurologic: positive: Motor Strength 5/5 (ambulatory) ED Treatment Course - Medications Given in the ED: ED Medications Discontinued Medications Generic Name Dose Route Start Last Admin Trade Name Freq PRN Reason Stop Dose Admin Albuterol/Ipratropium 1 amp 08/03/17 14:10 08/03/17 14:22 Duoneb - NEB 08/03/17 14:11 1 amp ONCE ONE Administration Medical Decision Making - Medical Decision Making 08/03/17 14:52 Patient here for asthma exacerbation. Patient denies going outdoors and states symptoms started while cleaning the house. Patient on arrival with expiratory wheeze to the left low. Patient satting at 96% but was found to be tachypneic with intercostal muscle usage. Patient ordered for DuoNeb and ordered for 60 mg of prednisone. Patient has had numerous x-rays including a CTA of the chest to rule out PE another etiology approximately one month ago. 08/03/17 16:52 Patient feeling better after receiving 2 DuoNebs. Patient's lung exam clear to auscultation. Patient satting at 99% on room air. Patient's respiratory rate 18 with no accessory muscle usage. Patient will be discharged home with prednisone tablets for the next 4 days along pulmonology follow-up. Patient has enough medication in rescue inhaler. *DC/Admit/Observation/Transfer Diagnosis at time of Disposition: Asthma with acute exacerbation in adult Qualifiers: Asthma severity: mild Asthma persistence: intermittent Qualified Code(s): J45.21 - Mild intermittent asthma with (acute) exacerbation - Discharge Dispostion Disposition: HOME Condition at time of disposition: Improved - Prescriptions Prescriptions: predniSONE [Deltasone -] 40 mg PO DAILY #8 tablet - Referrals Referrals: Shaun Car MD, [Staff Physician] - - Patient Instructions Printed Discharge Instructions: DI for Asthma -- Adult Additional Instructions: Please use your rescue inhaler as needed for coughing wheezing and shortness of breath. Please take prednisone as scheduled for the next few days until completed starting tomorrow since your given your first dose here in the ER. Please follow-up with referred [place] folder and cover your mouth and nose when going outside to avoid bronchospasm. - Post Discharge Activity
[2017-08-03] MEDS ORDERED: ACETAMINOPHEN 500 MG TABLET (FP) PO ONE (15:16)
[2017-08-03] MEDS ORDERED: ACETAMINOPHEN 325 MG TABLET (FP) ONE (15:25)
[2017-08-03 17:03] VITALS: BP 132/78; PULSE 94
== END 2017-08-03 17:03 | disposition home or self-care (01) ==
LOC: JER 13:40
PROC: 3E0F7GC Introduction of Other Therapeutic Substance into Respiratory Tract, Via Natural or Artificial Opening (ICD-10-PCS; principal; 2017-08-03)
DX: J45.21 Mild intermittent asthma with (acute) exacerbation (principal)
CPT/HCPCS: 99281-25

== ENCOUNTER 2017-08-06 14:10 | Emergency (ER) | payer OTHER ==
--- NOTE | 2017-08-06 14:22 | PDOC ---
Attending Attestation - HPI HPI: 08/06/17 14:49 Patient is a 27 F, with PMHx of asthma, who presents with worsening SOB and cough for 2 weeks. She was recently here for her asthma 3 days ago. She states that her asthma exacerbation began after her delivery 5 months ago. She states her shortness of breath is constant, worse when she is hot, and not improved with her duonebs and prednisone. She also reports productive cough with white sputum, pleuritic chest and back pain, racing heart, and headache. She called EMS and was given Decadron and more duonebs en route. Denies fever or chills. Denies h/o PE or DVT. No hemoptysis. No icu stays or intubations for asthma in the past. - Physicial Exam PE: 08/06/17 14:49 Vitals: Triage Vital signs reviewed General Appearance: no acute distress, well nourished well developed Head: Atraumatic Chest Wall: Nontender Cardiac: Regular rate and rhythm, no murmurs, no rubs, no gallops Lungs: Diffuse wheezing bilaterally Abdomen: Soft, non distended, normal bowel sounds, non tender to palpation Extremities: Full range of motion to all extremities, no cyanosis, clubbing, or edema Skin: Warm and dry, no rashes or lesions, no rash, no petechiae <Cheli Collazo - Last Filed: 08/06/17 14:49> - Resident Resident Name: Chip Galindo - ED Attending Attestation I have performed the following: I have examined & evaluated the patient, The case was reviewed & discussed with the resident, I agree w/resident's findings & plan, Exceptions are as noted - Medical Decision Making Patient presents with asthma exacerbation status post taking her home medications and steroids at home On examination mild bilateral wheezing We'll treat with steroids DuoNeb's mag and reassess Reevaluation patient feels much better asking to go home states she cannot be observed admitted to the hospital because of her child at home. Reevaluation she is no longer wheezing. She has 2 more days for steroid course. She was provided with clinic follow-up this week. Findings, the need for follow-up and strict return instructions discussed with patient. <Matt Shi - Last Filed: 08/08/17 10:33>
[2017-08-06] MEDS ORDERED: MAGNESIUM SULF 50% (8.12 MEQ/2 ML-1 GM VIAL) IVPB ONE (14:26)
[2017-08-06] MEDS ORDERED: ALBUTEROL SO4 2.5/IPRATROPIUM 0.5 INH SOL 3 ML VIAL.NEB. NEB ONE ×2 (14:26→14:38)
--- NOTE | 2017-08-06 14:26 | PDOC ---
History of Present Illness - General Chief Complaint: Asthma Stated Complaint: DIFFICULTY BREATHING Time Seen by Provider: 08/06/17 14:11 - History of Present Illness Initial Comments: 08/06/17 14:21 27 yo F with h/o asthma BIBA with worsening SOB. Patient with ongoing SOB and cough x 2 weeks. States that following delivery 5 month ago has been experiencing weeks of severe asthma exacerbations. Complaint of sputum white productive cough x 5 days. Endorses pleuritic chest and back pain, and palpitations, racing heart this AM. pl Recently seen in ED 08/03/17 for asthma exacerbation. Has been compliant with prednisone. Reports home duoneb therapy x 2 yesterday evening and this x 2 this AM with no improvement. Received Decadron 10 mg and duoneb therapy in route [facility]. Denies N/V, F/C, abdominal pain, diarrhea, constipation, urinary complaints, lightheadedness, weakness, sensory changes. Denies h/o DVT/PE, hemoptysis, leg pain/swelling, recent traveling or immobilization, recent trauma or surgery within past 6 weeks , OCP/hromonal use, coaugulopathy, or h/o malignancy. Denies h/o ICU stay or intubations. CTA (06/23) With absent evidence of PE, but LLL infiltrate vs. atelectasis. Past History - Past Medical History Allergies/Adverse Reactions: Allergies Allergy/AdvReac Type Severity Reaction Status Date / Time No Known Allergies Allergy Verified 08/06/17 14:20 Home Medications: Ambulatory Orders Albuterol Sulfate Inhaler - [Ventolin HFA Inhaler -] 1 - 2 inh PO Q4H PRN #1 inhaler 06/25/17 predniSONE [Deltasone -] 40 mg PO DAILY #8 tablet 08/03/17 Asthma: Yes CVA: No COPD: No Diabetes: Yes (Gestetional Diabetis) - Immunization History Immunization Up to Date: Yes - Suicide/Smoking/Psychosocial Hx Smoking History: Never smoked Have you smoked in the past 12 months: No Hx Alcohol Use: Yes (Social) Drug/Substance Use Hx: No Substance Use Type: None Review of Systems - Review of Systems Comments:: 08/06/17 14:27 GENERAL/CONSTITUTIONAL: No fever or chills. No weakness. HEAD, EYES, EARS, NOSE AND THROAT: No change in vision. No ear pain or discharge. No sore throat.- CARDIOVASCULAR: +chest pain. RESPIRATORY: + cough, wheezing, and SOB. No hemoptysis. GASTROINTESTINAL: No nausea, vomiting, diarrhea or constipation. GENITOURINARY: No dysuria, frequency, or change in urination. MUSCULOSKELETAL: No joint or muscle swelling or pain. No neck or back pain. SKIN: No rash NEUROLOGIC: No headache, vertigo, loss of consciousness, or change in strength/ sensation. ENDOCRINE: No increased thirst. No abnormal weight change HEMATOLOGIC/LYMPHATIC: No anemia, easy bleeding, or history of blood clots. ALLERGIC/IMMUNOLOGIC: No hives or skin allergy. *Physical Exam - Physical Exam Comments: 08/06/17 14:28 GENERAL: Awake, alert, and fully oriented, in no acute distress HEAD: No signs of trauma, normocephalic, atraumatic EYES: PERRLA, EOMI, sclera anicteric, conjunctiva clear ENT:Hearing grossly normal, nares patent, oropharynx clear without exudates. Moist mucosa NECK: Normal ROM, supple, no lymphadenopathy, JVD, or masses LUNGS: BL diffuse exp rhonci. Absent rales. Absent stridor. HEART: irregular rate and normal rhythm, normal S1 and S2, no murmurs, rubs or gallops, peripheral pulses normal and equal bilaterally. EXTREMITIES : Normal inspection, Normal range of motion, no edema. No clubbing or cyanosis. SKIN: Warm, Dry, normal turgor, no rashes or lesions noted ED Treatment Course - LABORATORY CBC & Chemistry Diagram: 08/06/17 15:20 08/06/17 15:20 Medical Decision Making - Medical Decision Making 08/06/17 14:37 27 yo F with h/o asthma BIBA with worsening SOB, cough, wheezing, pleuritic CP, and palpitations. Received Decadron 10 mg and duoneb therapy in route [facility]. Reports multiple asthma exacerbations x 5 months following delivery . Recently seen in ED 08/03/17 for asthma exacerbation. Has been compliant with oral prednisone and home duoneb. No home O2 requirement. Reports home duoneb therapy x 2 yesterday evening and this x 2 this AM with no improvement. Denies N/V, F/C, abdominal pain, diarrhea, constipation, urinary complaints, lightheadedness, weakness, sensory changes. Physical exam with diffuse exp rhonci and tachycardia. HR~116, O2 RA~98. SOB, cough, most likely 2/2 moderate vs. severe asthma exacerbation. Will also consider PNA given h/o infiltrate and multiple ED visits for SOB. Low risk PE based on modified weils critieria. ED Course: CBC, CMP, BHCG Duoneb CXR 08/06/17 16:11 Patient breathing improved. Denies SOB. Now requests home d/c. Patient, stable and ready for d/c. Advised to f/u with clinic. *DC/Admit/Observation/Transfer Diagnosis at time of Disposition: Asthma with acute exacerbation in adult Qualifiers: Asthma severity: moderate - Discharge Dispostion Disposition: HOME Condition at time of disposition: Stable Admit: No - Referrals Referrals: Shaun Car MD, [Staff Physician] - Rios Hale MD [Staff Physician] - - Patient Instructions Printed Discharge Instructions: Asthma -- Adult Additional Instructions: Please return to the emergency department with any new or worsening symptoms or concerns. Please follow up with your primary care physician/clinic within 24 hours. - Post Discharge Activity - Attestations Physician Attestion: 08/06/17 14:43 I attest to the information provided in this note.
[2017-08-06 14:30] VITALS: BP 146/93; PULSE 116; TEMP 98.1; BMI 26.2
[2017-08-06] MEDS ORDERED: MAGNESIUM SULF 50% (8.12 MEQ/2 ML-1 GM VIAL) ONE (14:38)
[2017-08-06] MEDS ORDERED: SODIUM CHLORIDE 0.9% 1000 ML INFUS.BAG IV ONE (14:45)
[2017-08-06 15:58] LABS: ALBUMIN 3.5 g/dl (3.4-5.0); ANION GAP 10 (8-16); BILIRUBIN,TOTAL 0.3 mg/dL (0.2-1.0); BLOOD UREA NITROGEN 7 mg/dL (7-18); CALCIUM 7.9 mg/dL (8.5-10.1); CHLORIDE 109 mmol/L (98-107); CO2 20 mmol/L (21-32); CREATININE 0.8 mg/dL (0.55-1.02); GLUCOSE,RANDOM 126 mg/dL (74-106); POTASSIUM 3.8 mmol/L (3.5-5.1); SGOT/AST 11 U/L (15-37); SGPT/ALT 18 U/L (12-78); SODIUM 139 mmol/L (136-145); TOT PROT 6.7 g/dl (6.4-8.2)
[2017-08-06 15:59] LABS: ALK PHOS 69 U/L (45-117)
[2017-08-06 16:14] LABS: BASO % 0.1 % (0-2.0); EOS % 0.1 % (0-4.5); HEMATOCRIT 42.6 % (32.4-45.2); HEMOGLOBIN 14.5 GM/dL (10.7-15.3); LYMPH % 3.9 % (8-40); MCH 32.1 pg (25.7-33.7); MEAN CELL VOLUME 94.4 fl (80-96); MONO % 1.3 % (3.8-10.2); NEUT % 94.6 % (42.8-82.8); RBC 4.51 M/mm3 (3.60-5.2); WHITE BLOOD COUNT 15.7 K/mm3 (4.0-10.0)
[2017-08-06 17:19] LABS: PLATELET COUNT 195 K/MM3 (134-434); PLATELET ESTIMATE ADEQUATE
== END 2017-08-06 16:22 | disposition home or self-care (01) ==
LOC: JER 14:10
PROC: 3E0F7GC Introduction of Other Therapeutic Substance into Respiratory Tract, Via Natural or Artificial Opening (ICD-10-PCS; principal; 2017-08-06)
PROC: 3E033GC Introduction of Other Therapeutic Substance into Peripheral Vein, Percutaneous Approach (ICD-10-PCS; 2017-08-06)
DX: J45.41 Moderate persistent asthma with (acute) exacerbation (principal); Z86.32 Personal history of gestational diabetes
CPT/HCPCS: 36415; 80053; 84703; 85025; 94640; 96374; 99283-25